=== PATIENT | female | born 1980 | race Caucasian/White ===

== ENCOUNTER 2021-05-16 08:35 | Outpatient (REF) | payer MEDICAID, SELFPAY ==
--- NOTE | ~2021-05-16 | US_ITS ---
EXAMINATION: US THYROID CLINICAL INFORMATION: Nontoxic single thyroid nodule COMPARISON: None TECHNIQUE: Linear transducer cabrera-scale and color Doppler examination with attention to the region of the thyroid. FINDINGS: SIZE: Measurements of the thyroid lobes and nodules are given in sagittal, anteroposterior and transverse dimensions respectively. Right Thyroid Lobe: 5.5 x 1.4 x 2.1 cm, volume 8.5 mL. Parenchyma: The gland echotexture is homogeneous. Thyroid vascularity is normal. Left Thyroid Lobe: 5.2 x 1.3 x 1.4 cm, volume 4.9 mL. Parenchyma: The gland echotexture is homogeneous. Thyroid vascularity is normal. Isthmus: 0.26 cm in maximum AP dimension. Estimated total number of nodules greater than or equal to 1 cm: 0. Personal Care Attendant nodules are described as follows: 1. Location: Right upper. Size: 0.45 x 0.27 x 0.46 cm, volume 0.03 mL. Nodule characteristics: Composition: Solid (2). Echogenicity: Hyperechoic (1). Shape: Not taller than wide (0). Margins: Smooth (0). Echogenic Foci: None (0). ACR TI-RADS total points: 3 ACR TI-RADS category: 3 2. Location: Isthmus. Size: 0.48 x 0.3 x 0.38 cm, volume 0.03 mL. Nodule characteristics: Composition: Mixed cystic and solid (1). Echogenicity: Hypoechoic (2). Shape: Not taller than wide (0). Margins: Smooth (0). Echogenic Foci: None (0). ACR TI-RADS total points: 3 ACR TI-RADS category: 3 3. Location: Isthmus. Size: 0.23 x 0.23 x 0.28 cm, volume 0.008 mL. Nodule characteristics: Composition: Cystic(0). Echogenicity: Shape: Margins: Echogenic Foci: ACR TI-RADS total points: 0 ACR TI-RADS category: 1 NODES: No lymphadenopathy is seen in the tissue surrounding the thyroid gland. US/US thyroid IMPRESSION: Normal-size thyroid gland. 3 small thyroid nodules. No nodule meets TI RADS criteria for fine-needle aspiration or follow-up. ACR TI-RADS RECOMMENDATION REFERENCE: Ultrasound-guided fine-needle aspiration, followup ultrasound, no further follow up. * TR1 (0 point) and TR 2 (2 points): No FNA or follow up * TR3 (3 points): FNA if more than or equal to 2.5 cm in maximum dimension, followup ultrasound in 1, 3 and 5 years if 1.5 to 2.4 cm in maximum dimension. * TR4 (4-6 points): FNA if more than or equal to 1.5 cm in maximum dimension, followup ultrasound in 1, 2, 3 and 5 years if 1 to 1.4 cm in maximum dimension. * TR5 (more than or equal to 7 points): FNA if more than or equal to 1 cm in maximum dimension, followup ultrasound every year for 5 years if 0.5 to 0.9 cm in maximum dimension. * TR3, TR4 or TR5 nodules that are below the size threshold for follow up receive no follow up.
== END 2021-05-16 08:36 | disposition home or self-care (01) ==
LOC: HO.US 08:35
PROVIDERS: PCP Internal Medicine; Visit Provider Internal Medicine
DX: E04.1 Nontoxic single thyroid nodule (principal)
CPT/HCPCS: 76536

== ENCOUNTER 2021-06-18 09:58 | Emergency (ER) | payer MEDICAID, SELFPAY ==
--- NOTE | ~2021-06-18 | XR_ITS ---
EXAMINATION: CHEST AND LEFT SHOULDER. CLINICAL INFORMATION: Chest pain and left shoulder pain COMPARISON: CT chest 11/29/2017 TECHNIQUE: Chest one view. Left shoulder 4 views. FINDINGS: CHEST: Both lungs are fairly well-expanded and clear. The heart size and pulmonary vascularity is normal. No gross bony abnormality seen. LEFT SHOULDER: There is no visible acute fracture, dislocation or subluxation seen. The glenohumeral joint space and the left AC joint space is normal. The soft tissues are normal. XR/XR shoulder LT min 2V IMPRESSION: Unremarkable left shoulder and unremarkable chest exam.
--- NOTE | ~2021-06-18 | XR_ITS ---
EXAMINATION: CHEST AND LEFT SHOULDER. CLINICAL INFORMATION: Chest pain and left shoulder pain COMPARISON: CT chest 11/29/2017 TECHNIQUE: Chest one view. Left shoulder 4 views. FINDINGS: CHEST: Both lungs are fairly well-expanded and clear. The heart size and pulmonary vascularity is normal. No gross bony abnormality seen. LEFT SHOULDER: There is no visible acute fracture, dislocation or subluxation seen. The glenohumeral joint space and the left AC joint space is normal. The soft tissues are normal. XR/XR chest 1V IMPRESSION: Unremarkable left shoulder and unremarkable chest exam.
[2021-06-18 09:59] VITALS: BP 107/74; PULSE 79; RESP 16; TEMP 36.3; O2SAT 97; BMI 23.5
--- NOTE | 2021-06-18 10:26 | ED_ITS ---
HPI - Extremity Problem General Chief complaint: Extremity Injury, Upper Stated complaint: left shoulder pain Source: patient Mode of arrival: ambulatory Limitations: no limitations History of Present Illness HPI Narrative: Patient presents to the ED for left shoulder pain, left-sided neck pain, sensation of shoulder and upper back tightness, radiating to chest. Patient states also pain on movement of upper torso. Patient states she woke up with this pain yesterday morning. Patient does not recall if she slept on it. Patient denies any recent trauma to left upper extremity, chest, back. 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 MD Complaint: extremity pain Related Data Previous Rx's Medication Instructions Recorded cyclobenzaprine 10 mg tablet 10 mg PO TID PRN 5 Days #15 tab 06/18/21 naproxen 500 mg tablet 500 mg PO BID PRN #20 tab 06/18/21 Allergies Allergy/AdvReac Type Severity Reaction Status Date / Time No Known Allergies Allergy Unverified 08/04/20 15:17 Review of Systems Review of Systems: Yes all other systems are reviewed and are negative and unobtainable due to endotracheal tube Constitutional: Constitutional: Reports as per HPI and Reports no additional constitutional complaints Eyes: Eyes: Reports as per HPI and Reports no additional eye complaints ENT: Reports system reviewed and no additional complaints, except as documented, Reports as per HPI and Reports neck pain (Left lateral neck pain) Cardiovascular: Cardiovascular: Reports as per HPI, Reports no additional cardiovascular complaints and Reports chest pain Respiratory: Respiratory: Reports as per HPI and Reports no additional respiratory complaints Gastrointestinal: Gastrointestinal: Reports as per HPI and Reports no additional gastrointestinal complaints Genitourinary: Genitourinary: Reports no additional female genitourinary complaints and Reports as per HPI Musculoskeletal: Musculoskeletal: Reports no additional musculoskeletal compla ints, Reports as per HPI, Reports back pain (Left upper back pain), Reports arthralgias and Reports neck pain (Left lateral neck pain) Comments: Left shoulder pain. Neurologic: Reports system reviewed and no additional complaints, except as documented and Reports as per HPI Psychiatric: Psychiatric: Reports no additional psychiatric complaints and Reports as per HPI PMFSH Past Medical History Surgical History (Updated 10/10/20 @ 15:43 by Malini Camargo [facility]) Hx of section Hx of removal of cyst Family History Family History (Updated 10/06/20 @ 14:56 by Rosalva Whitmore LPN) Father Unknown family medical history Mother No problems noted. Social History Social History (Updated 10/06/20 @ 14:55 by Rosalva Whitmore LPN) Advance Directives: No Advance Directives Information Provided: No Patient : No Physical Exam Vital Signs: Vital Signs: Last Vital Signs Temp 99.0 F 06/18/21 11:51 Pulse 65 06/18/21 11:51 Resp 18 06/18/21 11:51 BP 96/62 06/18/21 11:51 Pulse Ox 98 06/18/21 11:51 Body Mass Index 23.5 Const: General: cooperative, healthy appearing, comfortable, no acute distress, well developed, alert, awake and Physically active Orientation/consciousness: patient oriented x3 HENMT: Head: Yes normal to inspection, Yes No palpable skull fracture present, Yes normocephalic, Yes atraumatic and No abrasion Eyes: General: appearance normal, both eyes and all related structures Neck: Neck: Yes normal visual inspection, Yes full ROM, Yes no lymphaden opathy, Yes no meningeal signs, Yes trachea midline, Yes supple and Yes tender (Left lateral neck pain worse on movement) Chest: Chest palpation & inspection: normal inspection of the chest Chest/axillae images: 1. Positive for upper left for chest wall tenderness on palpation Resp: Effort & Inspection: normal respiratory effort and able to speak in complete sentences Auscultation: clear to auscultation bilaterally Cardio: Jugular venous distension: no JVD Heart sounds: S1 normal heart sound present and S2 normal heart sound present GI: Inspection: Yes normal to inspection and No abdominal wall ecchymosis Palpation (GI): Soft to palpation, not firm, nontender, no guarding and not rigid : General: No CVA tenderness and Yes no CVA tenderness Back/Spine/Pelvis: Back: no CVA tenderness, No CVA tenderness and No back tenderness Skin: General skin exam: no rashes or lesions noted and elasticity normal Neuro: General: patient oriented x3, gait normal, no meningeal signs and CN's II-XI intact bilaterally Cranial nerves: Yes CN's II-XII intact bilaterally Extrem: Shoulder/upper arm images: 1. Positive for tenderness on palpation. Pain on range of motion of left upper extremity. Negative for swelling of left upper extremity or redness. Molar/nerve/vessel exam is intact. Course Course Course Narrative: Due to patient stating chest pain with shoulder pain and history of smoking over 40 will do 1 cardiac anxiety and D-dimer. Patient given Flexeril. Reevaluation(s) Reevaluation #1: EKG negative for STEMI. Chest x-ray shoulder x-ray came back normal. D-dimer came back negative. Perc score 0. Troponin came back negative. Labs including kidney function came back normal. Patient is safe for d ischarge. Muscular pain. Muscle spasm Time: 12:25 MDM - Extremity (Nontraumatic) MDM Narrative Medical decision making narrative: Muscle spasm. Lab Data Result diagrams: 06/18/21 11:19 06/18/21 11:19 Labs: Lab Results 06/18/21 06/18/21 06/18/21 Range/Units 11:19 11:19 11:19 WBC 11.0 H (4.8-10.8) X10*3/uL RBC 4.57 (4.20-5.50) X10*6/uL Hgb 14.1 (12.0-16.0) g/dl Hct 43.1 (37-47) % MCV 94.3 (80-98) fL MCH 30.9 (27.0-33.0) pg MCHC 32.7 (31.0-35.0) g/dl RDW 12.9 (11.0-16.0) % Plt Count 298 (160-400) X10*3/uL MPV 9.8 (9.4-12.3) fL Immature Gran % (Auto) 0.2 (0.0-0.4) % Neut % (Auto) 72.8 (45-73) % Lymph % (Auto) 19.2 L (20-40) % Wilcox % (Auto) 5.0 (2-11) % Eos % (Auto) 2.5 (0-4) % Baso % (Auto) 0.3 (0-2) % Lymph # (Auto) 2.1 (1.2-4.9) X10*3/uL Wilcox # (Auto) 0.6 (0.1-1.2) X10*3/uL Eos # (Auto) 0.3 (0.0-0.4) X10*3/uL Baso # (Auto) 0.0 (0.0-0.2) X10*3/uL Abs Immat Gran (auto) 0.02 (0.00-0.03) X10*3/uL Absolute Neuts (auto) 8.0 (2.0-8.3) X10*3/uL Absolute Nucleated RBC 0.000 (0.0-0.012) X10*3/uL Nucleated RBC % (auto) 0.0 (0.0-0.2) /100WBC PT (9.9-13.0) SEC INR (0.9-1.1) APTT (24.1-38.0) SEC D-Dimer < 200 NG/ML Sodium 141 (135-145) mmol/L Potassium 4.3 (3.3-5.1) mmol/L Chloride 108 (96-108) mmol/L Carbon Dioxide 25 (22-29) mmol/L Anion Gap 12 (12-20) BUN 9 (9-16) mg/dL Creatinine 0.77 (0.5-1.4) mg/dL Estim Creat Clear Calc 82.1 Estimated GFR > 60 Random Glucose 88 (60-115) mg/dL Calcium 9.3 (8.4-10.2) mg/dL Total Bilirubin 0.4 (0.0-1.0) mg/dL AST 12 (5-31) U/L ALT 10 (0-31) U/L Alkaline Phosphatase 85 (39-117) U/L Troponin I High Sens (<3.5-17.0) ng/L Total Protein 7.5 (6.5-8.0) g/dL Albumin 4.3 (3.5-5.0) g/dL 06/18/21 06/18/21 Range/Units 11:19 11:19 WBC (4.8-10.8) X10*3/uL RBC (4.20-5.50) X10*6/uL Hgb (12.0-16.0) g/dl Hct (37-47) % MCV (80-98) fL MCH (27.0-33.0) pg MCHC (31.0-35.0) g/dl RDW (11.0-16.0) % Plt Count (160-400) X10*3/uL MPV (9.4-12.3) fL Immature Gran % (Auto) (0.0-0.4) % Neut % (Auto) (45-73) % Lymph % (Auto) (20-40) % Wilcox % (Auto) (2-11) % Eos % (Auto) (0-4) % Baso % (Auto) (0-2) % Lymph # (Auto) (1.2-4.9) X10*3/uL Wilcox # (Auto) (0.1-1.2) X10*3/uL Eos # (Auto) (0.0-0.4) X10*3/uL Baso # (Auto) (0.0-0.2) X10*3/uL Abs Immat Gran (auto) (0.00-0.03) X10*3/uL Absolute Neuts (auto) (2.0-8.3) X10*3/uL Absolute Nucleated RBC (0.0-0.012) X10*3/uL Nucleated RBC % (auto) (0.0-0.2) /100WBC PT 11.0 (9.9-13.0) SEC INR 1.0 (0.9-1.1) APTT 35.3 (24.1-38.0) SEC D-Dimer NG/ML Sodium (135-145) mmol/L Potassium (3.3-5.1) mmol/L Chloride (96-108) mmol/L Carbon Dioxide (22-29) mmol/L Anion Gap (12-20) BUN (9-16) mg/dL Creatinine (0.5-1.4) mg/dL Estim Creat Clear Calc Estimated GFR Random Glucose (60-115) mg/dL Calcium (8.4-10.2) mg/dL Total Bilirubin (0.0-1.0) mg/dL AST (5-31) U/L ALT (0-31) U/L Alkaline Phosphatase (39-117) U/L Troponin I High Sens < 3.5 (<3.5-17.0) ng/L Total Protein (6.5-8.0) g/dL Albumin (3.5-5.0) g/dL ECG Data Interpretation: Sinus bradycardia. Ventricular rate 59. Parent over 90. QRS 90. QTC 401. Negative STEMI Discharge Plan Discharge Clinical Impression: Muscle spasm of left shoulder Patient Disposition: Home, Self-Care Instructions: Shoulder Sprain (ED), Muscle Spasm (ED) Additional Instructions: You were diagnosed with muscle spasm versus shoulder sprain. EKG and troponin came back negative for heart attack. Your D-dimer came back negative for risk of blood clot. A chest x-ray and shoulder x-ray came back normal. Rest of your blood work came back normal. Please follow-up with your PCP. Return to the ED for any worsening chest pain, swelling of left upper extremity, shortness of breath, redness, red streaks, neck stiffness, fever, chills, or any other concerning symptoms. Prescriptions: New naproxen 500 mg tablet 500 mg PO BID PRN (Reason: pain) Qty: 20 RF: 0 cyclobenzaprine 10 mg tablet 10 mg PO TID PRN (Reason: muscle spasm) 5 Days Qty: 15 RF: 0 Stand Alone Forms: Work/School Release Interventions: ED Discharge Assessment Last Done: 06/18/21 12:38 Discharge Date/Time: 06/18/21 12:38 Print Language: Uzbek
--- NOTE | 2021-06-18 10:33 | ECG_ITS ---
Test Reason : CHEST PAIN Blood Pressure : / mmHG Vent. Rate : 060 BPM Atrial Rate : 058 BPM P-R Int : 000 ms QRS Dur : 088 ms QT Int : 418 ms P-R-T Axes : 000 071 053 degrees QTc Int : 418 ms Normal sinus rhythm Normal ECG No previous ECGs available Referred By: Jaydon Craig Electronically Signed By:LIZ JUAREZ
--- NOTE | 2021-06-18 10:51 | ECG_ITS ---
Test Reason : CHEST PAIN Blood Pressure : / mmHG Vent. Rate : 059 BPM Atrial Rate : 059 BPM P-R Int : 090 ms QRS Dur : 090 ms QT Int : 406 ms P-R-T Axes : 041 072 057 degrees QTc Int : 401 ms Sinus bradycardia with sinus arrhythmia with short NH Otherwise normal ECG When compared with ECG of 18-JUN-2021 10:48, No significant changes seen Referred By: Jaydon Craig Electronically Signed By:Jim Wade
[2021-06-18] MEDS: Cyclobenzaprine HCl 10 MG TABLET PO (10:52)
[2021-06-18 11:24] LABS: MANUAL DIFF FLAG NO
[2021-06-18 11:27] LABS: Basophils Percent Auto 0.3 % (0-2); Eosinophils Absolute Auto 0.3 X10*3/uL (0.0-0.4); Eosinophils Percent Auto 2.5 % (0-4); Hematocrit 43.1 % (37-47); Hemoglobin 14.1 g/dl (12.0-16.0); Imm Gran Abs Auto 0.02 X10*3/uL (0.00-0.03); Imm Gran Pct Auto 0.2 % (0.0-0.4); Lymphocytes Absolute Auto 2.1 X10*3/uL (1.2-4.9); Lymphocytes Percent Auto 19.2 % (20-40); Mean Corpuscular HGB Conc 32.7 g/dl (31.0-35.0); Mean Corpuscular Hemoglobin 30.9 pg (27.0-33.0); Mean Corpuscular Volume 94.3 fL (80-98); Mean Platelet Volume 9.8 fL (9.4-12.3); Monocytes Absolute Auto 0.6 X10*3/uL (0.1-1.2); Neutrophils Percent Auto 72.8 % (45-73); Platelet Count 298 X10*3/uL (160-400); Red Blood Count 4.57 X10*6/uL (4.20-5.50); Red Cell Distribution Width 12.9 % (11.0-16.0)
[2021-06-18 11:35] LABS: Partial Thromboplastin Time 35.3 SEC (24.1-38.0)
[2021-06-18 11:49] LABS: D Dimer < 200 NG/ML
[2021-06-18 11:50] LABS: Troponin-I High Sensitivity < 3.5 ng/L (<3.5-17.0)
[2021-06-18 11:51] VITALS: BP 96/62; PULSE 65; RESP 18; TEMP 37.2; O2SAT 98
[2021-06-18 11:56] LABS: Alanine Aminotransferase 10 U/L (0-31); Albumin Level 4.3 g/dL (3.5-5.0); Alkaline Phosphatase 85 U/L (39-117); Anion Gap 12 (12-20); Aspartate Amino Transferase 12 U/L (5-31); Bilirubin Total 0.4 mg/dL (0.0-1.0); Blood Urea Nitrogen 9 mg/dL (9-16); Calcium 9.3 mg/dL (8.4-10.2); Carbon Dioxide 25 mmol/L (22-29); Chloride 108 mmol/L (96-108); Creatinine Clr Calc Pharmacy 82.1; Estimated Glomerular Filt Rate > 60; Glucose Random 88 mg/dL (60-115); Potassium 4.3 mmol/L (3.3-5.1); Sodium 141 mmol/L (135-145); Total Protein 7.5 g/dL (6.5-8.0)
== END 2021-06-18 12:38 | disposition home or self-care (01) ==
PROVIDERS: Physician Assistant; Emergency Provider Student in an Organized Health Care Education/Training Program; PCP Internal Medicine
DX: M25.512 Pain in left shoulder (principal); M54.2 Cervicalgia; M62.838 Other muscle spasm; Z79.899 Other long term (current) drug therapy
CPT/HCPCS: 36415; 71045; 73030; 80053; 84484; 85025; 85379; 85610; 85730; 93005; 99283; 99284

== ENCOUNTER → 2021-07-27 10:28 | Outpatient (BNVA) | payer MEDICAID, SELFPAY | PROVIDERS: PCP Internal Medicine; Visit Provider Internal Medicine | DX: E55.9 Vitamin D deficiency, unspecified (principal); E04.2 Nontoxic multinodular goiter; E05.00 Thyrotoxicosis with diffuse goiter without thyrotoxic crisis or storm | CPT/HCPCS: 99212 ==

== ENCOUNTER 2021-07-27 11:10 | Outpatient (REF) | payer MEDICAID, SELFPAY ==
[2021-07-27 14:31] LABS: Free T4 (Free Thyroxine) 1.13 ng/dL (0.71-1.85); Thyroid Stimulating Hormone 0.47 uIU/mL (0.32-4.0); Vitamin D 25-OH Total 18.7 ng/mL (>30)
[2021-07-29 03:02] LABS: Triiodothyronine T3 Total 94 ng/dL (76-181)
== END 2021-07-27 11:11 | disposition home or self-care (01) ==
LOC: HO.10HDL 11:10
PROVIDERS: Visit Provider Internal Medicine
DX: E04.2 Nontoxic multinodular goiter (principal); E05.00 Thyrotoxicosis with diffuse goiter without thyrotoxic crisis or storm; E55.9 Vitamin D deficiency, unspecified
CPT/HCPCS: 36415; 82306; 84439; 84443; 84480

== ENCOUNTER 2022-01-29 08:43 | Emergency (ER) | payer MEDICAID, SELFPAY ==
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
[2022-01-29 09:01] VITALS: BP 138/76; PULSE 72; RESP 18; TEMP 36.1; O2SAT 99; BMI 25.7
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
== END 2022-01-29 11:27 | disposition home or self-care (01) ==
PROVIDERS: Emergency Provider Emergency Medicine
DX: S13.4XXA Sprain of ligaments of cervical spine, initial encounter (principal); V43.52XA Car driver injured in collision with other type car in traffic accident, initial encounter; R51.9 Headache, unspecified; M54.50 Low back pain, unspecified; R07.81 Pleurodynia; Y93.89 Activity, other specified; Y92.410 Unspecified street and highway as the place of occurrence of the external cause; Y99.9 Unspecified external cause status
CPT/HCPCS: 70450; 71111; 72100; 72125; 99283; 99284

== ENCOUNTER → 2023-06-06 10:30 | Outpatient (BNV) | payer OTHER, SELFPAY | PROVIDERS: Visit Provider Psychiatry & Neurology Psychiatry | DX: F31.9 Bipolar disorder, unspecified (principal) | CPT/HCPCS: 99213 ==

== ENCOUNTER 2023-06-10 10:30 | Outpatient (RCR) | payer OTHER, SELFPAY ==
[2023-05-24 11:44] VITALS: BP 120/77; PULSE 61; TEMP 37.2
--- NOTE | 2023-05-28 09:20 | P.HPPSP_ITS ---
HPI Date of Service: 05/28/23 Chief Complaint: bipolar,ADHD,PTSD,NATALIO Sources of Information: patient interviewed, chart reviewed and crisis/core team assessment reviewed HPI Narrative: Patient is a 43-year-old female who reports worsening depression irritability wo rsening of flashbacks and mood instability. She lives with 2 children 16 26-year-old that her boyfriend does not like how irritable she can be. She was referred by [facility] her therapist. She reports worsening depression hopelessness helplessness feeling not good about herself and worsening PTSD symptoms PMFSH Medical History (Updated 06/10/23 @ 22:20 by Se Ceron MD) Cyst of left ovary Graves disease Multinodular thyroid Polyp of gallbladder Polyp, corpus uteri Vitamin D deficiency Surgical History Hx of section Hx of removal of cyst Meds/Allergies Meds Home Medications Medication Instructions Recorded Confirmed Type albuterol sulfate 90 mcg/actuation 2 puff inhalation Q4-6H PRN dyspnea 05/24/23 05/24/23 History aerosol inhaler (Ventolin HFA) bupropion HCl 300 mg 24 hr tablet, 300 mg PO QAM 05/24/23 05/24/23 History extended release hydroxyzine HCl 25 mg tablet 25 mg PO Q12H PRN Anxiety 05/24/23 05/24/23 History methimazole 5 mg tablet 5 mg PO QAM 05/24/23 05/24/23 History mirtazapine 30 mg tablet 15 mg PO BEDTIME 05/24/23 05/24/23 History Allergies Allergies Allergy/AdvReac Type Severity Reaction Status Date / Time No Known Allergies Allergy Verified 07/27/21 10:43 Mental Status Exam Mental Status Exam Narrative: pt cooperative mood anxious ruminating describes mood lability denies active si racing thoughts neg gauthier agreeable to tx Assessment & Plan Assessment & Plan (1) Bipolar 2 disorder, major depressive episode: Status: Acute Code(s): F31.81 - Bipolar II disorder (2) Post traumatic stress disorder (PTSD): Status: Acute Code(s): F43.10 - Post-traumatic stress disorder, unspecified Plan Start Lamictal for mood instability PTSD question of bipolar disorder clonidine for ring anxiety reactivity mood instability. Risks benefits alternatives reviewed literature given Certification I certify that partial hospital treatment is medically necessary due to the symptoms and problems resulting from the patient's mental illness and the failure to treat the patient at the partial hospital level of care would likely result in the patient requiring inpatient psychiatric care which could not be prevented at a less intensive level of care. Time Spent With Patient Time: Total time managing care of this patient today ____ minutes.
[2023-05-28 09:56] VITALS: BP 107/73; PULSE 56
[2023-05-29 11:41] VITALS: BP 110/71; PULSE 56
[2023-05-30 08:52] VITALS: BP 100/62; PULSE 70
--- NOTE | 2023-05-30 16:45 | HO.PHP ---
Clients case was reviewed and opened today in treatment team.
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
[2023-06-05 11:33] LABS: Amphetamine Screen Urine Not Detected (Not Detect); Barbiturates, Urine Not Detected (Not Detect); Benzodiazepines Screen Urine Not Detected (Not Detect); Cannabinoid Screen Urine POSITIVE (Not Detect); Cocaine Screen Urine Not Detected (Not Detect); Fentanyl, urine Not Detected (Not Detect); Opiate Screen Urine Not Detected (Not Detect); Phencyclidine Screen Urine Not Detected (Not Detect)
--- NOTE | 2023-06-07 09:45 | HO.PHPPROGNO ---
Subjective Subjective Date of Service: 06/07/23 Reason For Visit: bipolar,ADHD,PTSD,NATALIO Healthcare Proxy: No Guardianship: No Medical Problems Affecting Mental Status: No Interim History: This is a follow-up visit with family during her partial hospital engagement. She was seen on 05/28 and started on Lamictal 25 mg which she is aware of needing to go up by 25 mg increments every 2 weeks and also clonidine 0.1 mg, half to 1 tablet daily p.r.n.. She states that she is tolerating both medications well. She denies any dizziness. She was informed of side effects of both medications including Dominique-Paul syndrome. She is sleeping well. She is finding the program here quite helpful. She does have an appointment next week with her prescriber at [facility]. No changes were made today Medication Compliance: Yes Side effects from medications: No Attending Groups: Yes Review of Systems Review of Systems Yes all other systems are reviewed and are negative Mental Status Exam Mental Status Exam Narrative: In today's visit she is alert, oriented and pleasant. Normal speech. Good eye contact. Affect is appropriate and varied. No suicidal homicidal ideations upon inquiry. No signs of psychosis. No SI. Cognitively is intact. Judgment is intact Diagnostics Labs Labs: Laboratory Results - last 48 hr 06/05/23 08:59 Urine Opiates Screen Not Detected Urine Fentanyl Screen Not Detected Ur Barbiturates Screen Not Detected Ur Phencyclidine Scrn Not Detected Ur Amphetamines Screen Not Detected U Benzodiazepines Scrn Not Detected Urine Cocaine Screen Not Detected U Marijuana (THC) Screen POSITIVE H Assessment & Plan Assessment & Plan (1) Bipolar 1 disorder, depressed: Status: Acute Code(s): F31.9 - Bipolar disorder, unspecified Plan Continue current medications. Continue partial hospital program to its completion Certification I certify that partial hospital treatment is medically necessary due to the symptoms and problems resulting from the patient's mental illness and the failure to treat the patient at the partial hospital level of care would likely result in the patient requiring inpatient psychiatric care which could not be prevented at a less intensive level of care. Total time managing care of this patient today ____ minutes. Discharge Plan Discharge Attending provider: Rakesh Hickman Medications: New clonidine HCl 0.1 mg tablet 0.1 mg PO DAILY PRN (Reason: anxiety) Qty: 10 1RF lamotrigine [Lamictal] 25 mg tablet 25 mg PO DAILY 14 Days Qty: 14 0RF No Action mirtazapine 30 mg tablet 15 mg PO BEDTIME methimazole 5 mg tablet 5 mg PO QAM hydroxyzine HCl 25 mg tablet 25 mg PO Q12H PRN (Reason: Anxiety) bupropion HCl 300 mg tablet extended release 24 hr 300 mg PO QAM albuterol sulfate [Ventolin HFA] 90 mcg/actuation HFA aerosol inhaler 2 puff INHALATION Q4-6H PRN (Reason: dyspnea) Stand Alone Forms: Patient Portal Discharge page
--- NOTE | 2023-06-10 13:48 | PC.NURSE ---
Patient discharged 06/10/23. Routine discharge. Discharge plan including discharge meds reviewed with patient. Patient in agreement with discharge plan. Patient discharged to outpatient providers. Patient denies SI, no plan, no intent. Discharge plan including medication list faxed to out patient providers.
--- NOTE | 2023-06-10 15:48 | HO.PHP ---
PHP staff went to get Martina to complete discharge paperwork during the second group. Martina was not in the group at the time, when Clinician was walking back to her office, Martina was in the hallway and asked the clinician if she could leave. PHP staff explored with Martina why she would like to leave, Martina stated she doesn't want to be here. Martina appeared to be angry, irritable, and tearful. PHP staff stated that it appears as though something had occurred. Martina disclosed that she is tired of feeling the way she does and just wants to get better. Martina made a comment that was unclear as to what she was implying, therefore, the clinician assessed for safety. Martina denies any current SI, plan or intent. Martina mentioned she just wants to go home and go to bed. PHP staff attempted to encourage her to try to stay the remainder of the day if able but that appeared to upset Martina more. PHP staff voiced that she will review the Discharge paperwork with her and then she can go home. Martina was receptive and appeared to regulate.
== END 2023-06-10 23:59 | disposition home or self-care (01) ==
LOC: HO.PHPA 10:30
PROVIDERS: Psychiatry & Neurology Psychiatry; Visit Provider Psychiatry & Neurology Psychiatry
DX: F31.81 Bipolar II disorder (principal); F43.10 Post-traumatic stress disorder, unspecified; Z79.899 Other long term (current) drug therapy
CPT/HCPCS: 80307; 90791; 90853

== ENCOUNTER → 2023-06-10 10:30 | Outpatient (BNV) | payer OTHER, SELFPAY | PROVIDERS: Visit Provider Psychiatry & Neurology Psychiatry | DX: F31.81 Bipolar II disorder (principal); F43.11 Post-traumatic stress disorder, acute | CPT/HCPCS: 99212; 99214 ==

== ENCOUNTER 2024-07-09 17:41 | Outpatient (REF) | payer OTHER, SELFPAY | END 2024-07-09 17:42 | disposition home or self-care (01) | LOC: HO.HHCLNP 17:41 | PROVIDERS: Visit Provider Family Medicine | DX: B34.9 Viral infection, unspecified (principal) | CPT/HCPCS: 87070 ==

== ENCOUNTER 2024-08-24 13:18 | Outpatient (REF) | payer OTHER, SELFPAY ==
[2024-08-27 00:59] LABS: TS Negative Control Passed; TS Panel A 0; TS Panel B 0; TS Positive Control Passed; TSpotTB Negative (Negative)
== END 2024-08-24 13:19 | disposition home or self-care (01) ==
LOC: HO.HHCL 13:18
PROVIDERS: Visit Provider Internal Medicine Geriatric Medicine
DX: Z11.1 Encounter for screening for respiratory tuberculosis (principal)
CPT/HCPCS: 36415; 86481

== ENCOUNTER 2024-10-22 10:46 | Outpatient (REF) | payer MEDICAID, SELFPAY ==
[2024-10-22 11:10] LABS: MANUAL DIFF FLAG NO
[2024-10-22 12:10] LABS: Basophils Percent Auto 0.5 % (0-2); Eosinophils Absolute Auto 0.5 X10*3/uL (0.0-0.4); Eosinophils Percent Auto 5.4 % (0-4); Hematocrit 38.9 % (37.0-47.0); Hemoglobin 12.7 g/dl (12.0-16.0); Imm Gran Abs Auto 0.02 X10*3/uL (0.00-0.03); Imm Gran Pct Auto 0.2 % (0.0-0.4); Lymphocytes Absolute Auto 2.2 X10*3/uL (1.2-4.9); Mean Corpuscular HGB Conc 32.6 g/dl (31.0-35.0); Mean Corpuscular Hemoglobin 30.5 pg (27.0-33.0); Mean Corpuscular Volume 93.5 fL (80.0-98.0); Mean Platelet Volume 11.1 fL (9.4-12.3); Monocytes Absolute Auto 0.6 X10*3/uL (0.1-1.2); Monocytes Percent Auto 6.6 % (2-11); Neutrophils Absolute Auto 5.3 x10*3/uL (2.0-8.3); Neutrophils Percent Auto 61.3 % (45-73); Platelet Count 293 X10*3/uL (160-400); Red Blood Count 4.16 X10*6/uL (4.20-5.50); Red Cell Distribution Width 12.8 % (11.0-16.0); White Blood Count 8.6 X10*3/uL (4.8-10.8)
[2024-10-22 12:32] LABS: Amphetamine Screen Urine Not Detected (Not Detect); Barbiturates, Urine Not Detected (Not Detect); Benzodiazepines Screen Urine Not Detected (Not Detect); Buprenorphine Scr Not Detected (Not Detect); Cannabinoid Screen Urine POSITIVE (Not Detect); Cocaine Screen Urine Not Detected (Not Detect); Fentanyl, urine Not Detected (Not Detect); Methadone Screen, Urine Not Detected (Not Detect); Opiate Screen Urine Not Detected (Not Detect); Oxycodone Screen Urine Not Detected (Not Detect); Phencyclidine Screen Urine Not Detected (Not Detect)
[2024-10-22 12:52] LABS: Alanine Aminotransferase 9 U/L (0-31); Alkaline Phosphatase 69 U/L (39-117); Anion Gap 9 (12-20); Aspartate Amino Transferase 16 U/L (5-31); Bilirubin Total 0.4 mg/dL (0.0-1.0); Blood Urea Nitrogen 10 mg/dL (9-16); Calcium 8.8 mg/dL (8.4-10.2); Carbon Dioxide 24 mmol/L (22-29); Chloride 112 mmol/L (96-108); Cholesterol 150 mg/dL (<200); Estimated Glomerular Filt Rate > 60; Glucose Fasting 91 mg/dL (60-99); HDL Cholesterol 35 mg/dL (>40); LDL Cholesterol Calculated 103 mg/dL (<100); Potassium 3.8 mmol/L (3.3-5.1); Sodium 141 mmol/L (135-145); Total Protein 7.4 g/dL (6.5-8.0); Triglycerides 61 mg/dL (<150)
== END 2024-10-22 10:47 | disposition home or self-care (01) ==
LOC: HO.LAB 10:46
PROVIDERS: Visit Provider Nurse Practitioner Psychiatric/Mental Health
DX: Z79.899 Other long term (current) drug therapy (principal)
CPT/HCPCS: 80053; 80061; 80307; 85025

== ENCOUNTER 2025-02-24 08:25 | Outpatient (REF) | payer MEDICAID, SELFPAY ==
--- NOTE | 2025-02-24 08:30 | ECG_ITS ---
Test Reason : f39 r/o qtc Blood Pressure : */* mmHG Vent. Rate : 58 BPM Atrial Rate : 58 BPM P-R Int : 110 ms QRS Dur : 90 ms QT Int : 414 ms P-R-T Axes : 18 60 50 degrees QTcB Int : 406 ms Sinus bradycardia with short AL Otherwise normal ECG When compared with ECG of 18-Jun-2021 10:51, No significant change was found Referred By: Hannah Cao Electronically Signed By: Jim Wade
--- OUTSIDE RECORDS SUMMARY | 2025-02-24 08:37 | XMS_ITS | Clinical Summary ---
Author Organization [employer] Address [address] [place] [address] Care Team Providers Care Content Editor Name Role Phone Juliette Madden MD Primary Care Provider [phone] Allergies No known active allergies Medications omeprazole (PriLOSEC) [address] capsule Take 1 capsule by mouth at bed time. 10/18/20 Active montelukast (Singulair) 10 MG tablet Take 1 tablet (10 mg) by mouth in the morning. 90 tablet 2 05/01/20 Active calamine-zinc oxide lotionIndicati ons:Pruritic rash Apply topically if needed in the morning, at noon, in the evening, and at bedtime (Skin irritation). 120 mL 05/28/20 Active Additional Information Patient not taking.Reported on 07/09/2024 hydrOXYzine HCl (Atarax) 25 MG tabletIndicati ons:Mixed anxiety and depressive disorder TAKE 1 TABLET BY MOUTH EVERY TWELVE HOURS NEEDED 60 tablet 07/19/20 Active Additional Information Patient not taking.Reported on 07/09/2024 triamcinolone (Kenalog) 0.1 % creamIndicatio ns:Pruritic rash APPLY TOPICALLY TO AFFECTED AREA(S) ONE OR TWO TIMES DAILY NEEDED FOR ITCHING FOR 1 TO 2 WEEKS 30 g 2 08/19/20 Active Additional Information Patient not taking.Reported on 07/09/2024 methIMAzole (Tapazole) 5 MG tabletIndicati ons:Graves' disease TAKE 1 TABLET BY MOUTH DAILY IN THE MORNING 90 tablet 09/27/20 Active Additional Information Patient not taking.Reported on 07/09/2024 buPROPion XL (Wellbutrin XL) 300 MG 24 hr tablet Take 300 mg by mouth in the morning. 01/15/20 Active mirtazapine (Remeron) 15 MG tablet Take 15 mg by mouth at bedtime. 01/15/20 Active lamoTRIgine (LaMICtal) 25 MG tablet TAKE 1 TABLET BY MOUTH EVERY DAY FOR FOURTEEN DAYS THEN INCREASE TO 2 TABLETS DAILY FOR MOOD 01/15/20 Active cloNIDine (Catapres) 0.1 MG tablet Take 0.1 mg by mouth if needed at bedtime. 01/15/20 Active albuterol (Ventolin HFA) 108 (90 Base) MCG/ACT inhaler INHALE 2 PUFFS BY MOUTH EVERY 4 TO 6 HOURS NEEDED FOR DIFFICULTY BREATHING DO NOT EXCEED 8 PUFFS 18 g 3 05/08/20 24 Active Additional Information Patient not taking.Reported on 07/09/2024 cetirizine (ZyrTEC) 10 MG tablet Take 1 tablet (10 mg) by mouth Once per day. 30 tablet 11 07/09/20 24 025 Active Additional Information Patient not taking.Reported on 07/09/2024 fluticasone (Flonase) 50 MCG/ACT nasal spray Administer 2 sprays into each nostril Once per day. Shake gently. Before first use, prime pump. After use, clean tip and replace cap. 16 g 3 07/09/20 24 025 Active Additional Information Patient not taking.Reported on 07/09/2024 acetaminophen (Tylenol 8 Hour) 650 MG ER tablet TAKE 1 TABLET BY MOUTH EVERY 8 HOURS NEEDED FOR MILD PAIN DO NOT BREAK, CRUSH, DISSOLVE OR CHEW 40 tablet 1 08/03/20 24 Active baclofen (Lioresal) 10 MG tabletIndicati ons:Chronic right shoulder pain Take one tablet TID PRN 30 tablet 12/03/19 25 Active ibuprofen 600 MG tabletIndicati ons:Chronic right shoulder pain TAKE 1 TABLET BY MOUTH EVERY 6 HOURS 120 tablet 1 02/02/20 25 Active ibuprofen 600 MG tabletIndicati ons:Chronic right shoulder pain Take 1 tablet (600 mg) by mouth every 6 (six) hours. 120 tablet 1 12/03/19 25 025 Discontinued Active Problems Problem Noted Date Diagnosed Date Seasonal allergies 10/23/2022 Adenomyomatosis of gallbladder 10/23/2022 Cyst of left ovary 03/19/2018 Polyp of corpus uteri 03/19/2018 Polyp of gallbladder 12/04/2017 Thyroid nodule 08/17/2016 Graves' disease 08/10/2016 Mood disorder 08/10/2016 Resolved Problems Problem Noted Date Diagnosed Date Resolved Date Helicobacter pylori gastritis 10/23/2022 10/23/2022 Encounters Date Type Department Care Team Description 02/17/2025 Patient Outreach [facility] [address] [place] [id number] Juliette Madden MD Pre-visit Planning ((Unable to reach for PVP screening and or LVM)) 01/31/2025 Refill [facility] [address] [place] [phone] Ginna Munoz NP Chronic right shoulder pain 01/29/2025 Population Health Risk Score Community [facility] ([facility]) Department [address] [place] [address] [phone] Provider, Population Health Generic 12/09/2024 Telephone [facility] [address] [place] [phone] Hermilo Batista MD Results 12/03/2024 1:40 PM EST Office Visit [facility] [address] [address] Ginna Munoz NP Chronic right shoulder pain (Primary Dx); Musculoskeletal pain; Thyroid nodule; Lymphadenopathy from Last 3 Months Immunizations Name Administration Dates Next Due Hep B, adult 08/10/2020,08/30/2017,07/31/2017 Influenza injectable quadriv alent preservative free 09/28/2022 Pfizer Covid-19 Vaccine 12+ 08/02/2021, Pneumococcal Polysaccharide PPSV23 08/10/2016 Tdap 08/10/2020 Family History Medical History Relation Name Comments Diabetes type II Father's Brother Diabetes type II Father's Sister Relation Name Status Comments Father's Brother Father's Sister Social History Tobacco Use Types Packs/Day Years Used Date Smoking Tobacco: Some Days Cigarettes Passive Smoke Exposure: Never Smokeless Tobacco: Never Tobacco Cessation:Ready to Q uit: Not Asked; Counseling Given: Not Answered Alcohol Use Standard Drinks/Week Comments Not Currently 0 (1 standard drink = 0.6 oz pur e alcohol) Depression Answer Date Recorded Patient Health Questionnaire-9 Score 2 01/25/2023 Housing Stability Answer Date Recorded What is your housing situation today? I have chema helms 09/19/[address] you li ve. Do you have problems with any of the following? None of the above 09/19/2023 Food Insecurity Answer Date Recorded Within the past 12 months, y ou worried that your food would run out before you got money to buy more: Sometimes True 2022 Within the past 12 months,th e food you bought just didn't last and you didn't have enough money to get more: Never True 09/19/2023 Transportation Answer Date Recorded In the past 12 months, has l ack of transportation kept you from medical appts, meetings, work or from getting things needed for daily living? No 09/19/2023 Utilities Answer Date Recorded In the past 12 months, has t he electric, gas, oil or water company threatened to shut off services in your home? No 09/19/2023 Depression Answer Date Recorded Patient Health Questionnaire-2 Score 0 01/25/2023 Comments Unknown Sex and Gender Information Value Date Recorded Sex Assigned at Female 09/17/2022 10:15 AM EDT Legal Sex Female 10:15 AM EDT Gender Identity Female 09/17/2022 10:15 AM EDT Sexual Orientation Straight 09/17/2022 10 :15 AM EDT Last Filed Vital Signs Vital Sign Reading Time Taken Comments Blood Pressure 118/77 12/03/2024 1:11 PM EST Pulse 65 12/03/2024 1:11 PM EST Temperature 36.7 ??C (98.1 ??F) 12/03/2024 1:11 PM ES T Respiratory Rate 16 12/03/2024 1:11 PM EST Oxygen Saturation 97% 12/03/2024 1:11 PM EST Inhaled Oxygen Concentration - - Weight 67.1 kg (148 lb) 12/03/2024 1:11 PM EST Height 162.6 cm (5' 4 ) 07/09/2024 9:11 AM EDT Body Mass Index 25.4 07/09/2024 9:11 AM EDT Plan of Treatment Health Maintenance Due Date Last Done Comments CT Colonography 1979 Colonoscopy 1979 Dental Prophylaxis 1979 FIT DNA/Cologuard 1979 FIT 1979 Sigmoidoscopy 1979 Alcohol/Substance Use Screening 1991 Family Planning (PISQ) 1994 Dental Oral Exam 06/04/2013 12/04/2012 Dental X-Ray: Full Mouth 12/05/2015 12/04/2012 Pneumococcal Vaccine: Pediatrics (0 to 5 Years) and At-Risk Patients (6 to 49) Years) (2 of 2 - PCV) 08/10/2017 08/10/2016 Mammogram 2019 Colorectal Cancer Screening 12/09/2020 FOBT 12/09/2020 12/09/2019 SDOH Screening 12/28/2023 12/28/2022 Depression Screening 01/26/2024 01/25/2023, 01/25/2023 Dental X-Ray: Bitewings 06/28/2024 06/27/20, 12/04/2012 COVID-19 Vaccine (3 - 2023-2 5 season) 2024 08/02/2021, 07/12/2021 Influenza Vaccine (#1) 2024 , 10/02/2007 Tobacco Screening 03/03/2025 03/03/2024 Cervical Cancer Screening 03/23/2026 HPV/Cotest 03/23/2026 03/23/2021 Pap Smear 03/23/2026 03/23/2021 Lipid Panel 10/22/2027 10/22/2022 Zoster Vaccines (1 of 2) 2029 DTaP/Tdap/Td Vaccines (2 - T d or Tdap) 08/10/2030 08/10/2020 RSV Patients and Patients Aged 60 years or older (1 - 1-dose 75+ series) 2054 Hepatitis B Vaccines Completed 08/10/2020, 08/30/2017, 07/31/2017 HIV Screening Completed 10/22/2022 Hepatitis C Screening Completed 10/22/2022 HIB Vaccines Aged Out No longer eligi ble based on patient's age to complete this topic HPV Vaccines Aged Out No longer eligi ble based on patient's age to complete this topic Hepatitis A Vaccines Aged Out No long er eligible based on patient's age to complete this topic IPV Vaccines Aged Out No longer eligi ble based on patient's age to complete this topic Meningococcal Vaccine Aged Out No samantha belinda eligible based on patient's age to complete this topic RSV under 20 months Aged Out No longe r eligible based on patient's age to complete this topic Rotavirus Vaccines Aged Out No longer eligible based on patient's age to complete this topic Procedures Procedure Name Priority Date/Time Associated Diagnosis Comments T3, TOTAL Routine 12/03/2024 2:30 PM EST Thyroid nodule T4, FREE Routine 12/03/2024 2:30 PM EST Thyroid nodule TSH Routine 12/03/2024 2:30 PM EST Thyroid nodule CBC WITH AUTO DIFFERENTIAL Routine 12/03/2024 2:30 PM EST Lymphadenopathy BITEWING - SINGLE RADIOGRAPHIC IMAGE Routine 06/27/2023 11:30 AM EDT Dental caries Dental abscess HEPATITIS C AB W/REFL TO HCV RNA, QN, PCR Routine 10/22/2022 10:27 AM EST HIV 1/2 ANTIGEN/ANTIBODY, FOURTH GENERATION W/RFL Routine 10/22/2022 10:27 AM EST LIPID PANEL, STANDARD Routine 10/22/2022 10:27 AM EST HM PAP/HPV Routine 03/23/2021 OCCULT BLOOD, FECAL, IMMUNOASSAY Routine 12/09/2019 12:00 AM EST INTRAORAL - COMPLETE SERIES OF RADIOGRAPHIC IMAGES Routine 12/04/2012 12:00 AM EST COMPREHENSIVE ORAL EVALUATION - NEW OR ESTABLISHED PATIENT Routine 12/04/2012 12:00 AM EST from Last 3 Months or Most Recently Relevant to Health Maintenance Results * (ABNORMAL) CBC auto differential (12/03/2024 2:30 PM EST) White Blood Count 9.8 4.8 - 10.8 X10*3/uL [facility] Red Blood Count 4.49 4.20 - 5.50 X10*6/uL [facility] Hemoglobin 13.7 12.0 - 16.0 g/dl [facility] Hematocrit 41.9 37.0 - 47.0 % [facility] Mean Corpuscular Volume 93.3 80.0 - 98.0 fL [facility] Mean Corpuscular Hemoglobin 30.5 27.0 - 33.0 pg [facility] Mean Corpuscular HGB Conc 32.7 31.0 - 35.0 g/dl [facility] Red Cell Distribution Width 12.5 11.0 - 16.0 % [facility] Platelet Count 296 160 - 400 X10*3/uL [facility] Mean Platelet Volume 11.2 9.4 - 12.3 fL [facility] Neutrophils Percent Auto 68.6 45 - 73 % [facility] Imm Gran Pct Auto 0.2 0.0 - 0.4 % [facility] Lymphocytes Percent Auto 21.3 20 - 40 % [facility] Monocytes Percent Auto 5.2 2 - 11 % [facility] Eosinophils Percent Auto 4.1(H) 0 - 4 % [facility] Basophils Percent Auto 0.6 0 - 2 % [facility] NRBC Pct Auto 0.0 0.0 - 0.2 /100WBC [facility] Neutrophils Absolute Auto 6.7 2.0 - 8.3 x10*3/uL [facility] Imm Gran Abs Auto 0.02 0.00 - 0.03 X10*3/uL [facility] Lymphocytes Absolute Auto 2.1 1.2 - 4.9 X10*3/uL [facility] Monocytes Absolute Auto 0.5 0.1 - 1.2 X10*3/uL [facility] Eosinophils Absolute Auto 0.4 0.0 - 0.4 X10*3/uL [facility] Basophils Absolute Auto 0.1 0.0 - 0.2 X10*3/uL [facility] NRBC Abs Auto 0.000 0.0 - 0.012 X10*3/uL [facility] Blood Venous blood specimen / Unknown 12/03/2024 2:30 PM EST 12/03/2024 3:57 PM EST Ginna Cole SECURITY SME LAB BLOOD ORDERABLES Final Resu lt Performing Organization Address [facility] Co de Phone Number [facility] [address] [place] [phone] * T3, Total (12/03/2024 2:30 PM EST) T3, Total 91 76 - 181 ng/dL [facility] Comment:THIS TEST WAS PERFOR MED AT:[address] [place] [phone] PETERSEN MD Blood Venous blood specimen / Unknown 12/03/2024 2:30 PM EST 12/03/2024 3:57 PM EST Ginna Cole SECURITY SME LAB BLOOD ORDERABLES Final Resu lt Performing Organization Address [facility] Co de Phone Number [facility] [address] [place] [phone] * TSH (12/03/2024 2:30 PM EST) [facility] Thyroid Stimulating Hormone 0.42 0.32 - 4.0 uIU/mL [facility] Comment:TSH 3rd Generation ( [facility]) Blood Venous blood specimen / Unknown 12/03/2024 2:30 PM EST 12/03/2024 3:57 PM EST Ginna Cole SECURITY SME LAB BLOOD ORDERABLES Final Resu lt Performing Organization Address [facility] Co de Phone Number [facility] [address] [place] [phone] * T4, Free (12/03/2024 2:30 PM EST) Pathologist [facility] Free T4 (Free Thyroxine) 1.07 0.71 - 1.85 ng/dL [facility] Blood Venous blood specimen / Unknown 12/03/2024 2:30 PM EST 12/03/2024 3:57 PM EST Ginna Munoz NP LAB BLOOD ORDERABLES Final Resu lt [facility] [address] [place] [phone] * Hepatitis C Antibody with Reflex to HCV, RNA, Quantitative, Real-Time PCR (10/22/2022 10:27 AM EST) Hepatitis C Antibody NON-REACT JAMI NON-REACT JAMI [employer] [facility] [employer] Index 0.16 <1.00 [facility] [employer] Comment: HCV antibody was non-reactive. There is no laboratory evidence of HCV infection. In most cases, no further action is required. However, if recent HCV exposure is suspected, a test for HCV RNA (test code 48477) is suggested. For additional information please refer to http://education.[employer]/faq/VFR25t8 (This link is being provided for informational/ educational purposes only.) 10/22/2022 10:2 7 AM EST 10/22/2022 10:27 AM EST Narrative [facility] - 10/25/2022 4:23 PM EST FASTING:YES FASTING: YES Hermilo Batista MD LAB BLOOD ORDERABLES Final Resul t Performing Organization Address City/[facility]/ZIP Co de Phone Number [facility] [address], [facility] [place] [phone] [email or web address] [address], [facility] [place] [address] * HIV-1/2 Antigen and Antibodies, Fourth Generation, with Reflexes (10/22/2022 10:27 AM EST) HIV Antigen/Antibody, 4th Generation NON-REAC TIVE NON-REAC TIVE [employer] Comment: HIV-1 antigen and HIV-1/HIV-2 antibodies were not detected. There is no laboratory evidence of HIV infection. PLEASE NOTE: This information has been disclosed to you from records whose confidentiality may be protected by state law. ??If your state requires such protection, then the state law prohibits you from making any further disclosure of the information without the specific written consent of the person to whom it pertains, or as otherwise permitted by law. A general authorization for the release of medical or other information is NOT sufficient for this purpose. ?? For additional information please refer to http://Animal[employer]ae.[employer]/faq/WNG465 (This link is being provided for informational/ educational purposes only.) The performance of this assay has not been clinically validated in patients less than 2 years old. 10/22/2022 10:2 7 AM EST 10/22/2022 10:27 AM EST Narrative [facility] - 10/25/2022 4:23 PM EST FASTING:YES FASTING: YES us Hermilo Batista MD LAB BLOOD ORDERABLES Final Resul t [facility] [address] [place] [phone] [employer] [address], [facility] [place] [address] * (ABNORMAL) Lipid Panel, Standard (10/22/2022 10:27 AM EST) [facility] Cholesterol, Total 187 <200 mg/dL [employer] [facility] [employer] HDL Cholesterol 46(L) > OR = 50 mg/dL [email or web address] Triglycerides 64 <150 mg/dL [employer] [facility] [email or web address] LDL Cholesterol 125(H) mg/dL (calc) [employer] [facility] [employer] Comment: Reference range: <100 Desirable range <100 mg/dL for primary prevention; ?? <70 mg/dL for patients with CHD or diabetic patients with > or = 2 CHD risk factors. LDL-C is now calculated using the Tony calculation, which is a validated novel method providing better accuracy than the Friedewald equation in the estimation of LDL-C. Josh RASHEED et al. ML. 2013;310(19): 7916-2931 (http://education.Windation.Roojoom/faq/WGW731) Chol/HDLC Ratio 4.1 <5.0 (calc) [email or web address] Non-HDL Cholesterol 141(H) <130 mg/dL (calc) [facility] Comment: For patients with diabetes plus 1 major ASCVD risk factor, treating to a non-HDL-C goal of <100 mg/dL (LDL-C of <70 mg/dL) is considered a therapeutic option. 10/22/2022 10:2 7 AM EST 10/22/2022 10:27 AM EST Narrative [facility] - 10/25/2022 4:23 PM EST FASTING:YES FASTING: YES Hermilo Batista MD LAB BLOOD ORDERABLES Final Resul t Performing Organization Address [facility] de Phone Number [facility] [address], [facility] [place] [phone] [employer] [address], [facility] [place] [address] * Hm Pap Smear (03/23/2021) Pap Negative for intraephithelial lesion or malignancy Negative for intraephithelial lesion or malignancy, Other HPV Undetected Undetected, Indeterminate, Quantitative, Not Detected Celia Chappell MD HEALTH MAINTENANCE Final Result * OCCULT BLOOD STOOL (12/09/2019 12:00 AM EST) OCCULT BLOOD STOOL NEG NEG [facility] 12/09/2019 Rose Rod MD LAB BODY FLUIDS AND STOOLS O RDERABLES Final Result [facility] [address] from Last 3 Months or Most Recently Relevant to Health Maintenance Insurance [facility] C[facility] * Guarantor: Martina Araiza Account Type Relation to Patient Date of Phone Billing Address Dental Self 1980 [address] [place] [address] [facility] MEDICAID STAND ADULT Care Teams Content Editor Relationship Specialty Start Date End Date Juliette Madden MD [address] [place], [place] PCP - General Family Medicine 12/22/24
--- OUTSIDE RECORDS SUMMARY | 2025-02-24 08:37 | XMS_ITS | Encounter Summary ---
Author Organization [facility] Address [address] [place] [address] [address] [place] [address] Care Team Providers Care Dispatcher Automobile Rental Name Role Phone Tony Azevedo Primary Care Provider Shaniqua Lee Primary Care Provider [phone] Hermilo Batista MD Primary Care Provider [phone] Arturo Cevallos CNP Primary Care Provider [phone] Juliette Madden MD Primary Care Provider [phone] Encounter Details Date Type Department Care Team (Late st Contact Info) Description 12/14/2022 Orders Only [facility] [address] [place], [place] [phone] Josefina Moreland RN Social History Tobacco Use Types Packs/Day Years Used Date Smoking Tobacco: Never Assessed Comments Unknown Sex and Gender Information Value Date Recorded Sex Assigned at Female 09/17/2022 10:15 AM EDT Legal Sex Female 10:15 AM EDT Gender Identity Female 09/17/2022 10:15 AM EDT Sexual Orientation Straight 09/17/2022 10 :15 AM EDT documented as of this encounter Plan of Treatment Not on file documented as of this encounter Visit Diagnoses Not on filedocumented in this encounter Care Teams Dispatcher Automobile Rental Relationship Specialty Start Date End Date Tony Azevedo FNP PCP - General Family Medicine 10/25/22 01/16/23 Shaniqua Gutierrez FNP [address] [place], [place] [phone] PCP - General Family Medicine 01/17/23 07/20/24 Hermilo Batista MD [address] [place], [place] [phone] PCP - General Internal Medicine 07/21/24 12/10/24 Arturo Cevallos CNP [address] [place], [place] [phone] PCP - General Family Medicine 12/11/24 12/21/24 Juliette Madden MD [address] [place], [place] [phone] PCP - General Family Medicine 12/22/24 documented as of this encounter
--- OUTSIDE RECORDS SUMMARY | 2025-02-24 08:37 | XMS_ITS | Encounter Summary ---
Author Organization [facility] Address [address] [place] [address] [address] [place] [address] Care Team Providers Care Bank Appraiser Name Role Phone Tony Azevedo Primary Care Provider Shaniqua Lee Primary Care Provider [phone] Hermilo Batista MD Primary Care Provider [phone] Arturo Cevallos CNP Primary Care Provider [phone] Juliette Madden MD Primary Care Provider Encounter Details Date Type Department Care Team (Late st Contact Info) Description 12/13/2022 Telephone [facility] [address] [place], [place] [phone] Tony Azevedo FNP Social History Tobacco Use Types Packs/Day Years [...] on filedocumented in this encounter Care Teams Bank Appraiser Relationship Specialty Start Date End Date Tony Azevedo FNP PCP - General Family Medicine 10/25/22 01/16/23 Shaniqua Gutierrez FNP [address] [place], [place] [phone] PCP - General Family Medicine 01/17/23 07/20/24 Hermilo Batista MD [address] [place], [place] [phone] PCP - General Internal Medicine 07/21/24 12/10/24 Arturo Cevallos CNP [address] [place], [place] [phone] PCP - General Family Medicine 12/11/24 12/21/24 Juliette Madden MD [address] [place], [place] [phone] PCP - General Family Medicine 12/22/24 documented as of this encounter
--- OUTSIDE RECORDS SUMMARY | 2025-02-24 08:37 | XMS_ITS | Encounter Summary ---
Author Organization [employer] [facility] Address [address] [place] [address] [address] [place] [address] Care Team Providers Care Network Support Engineer Name Role Phone Shaniqua Gutierrez Primary Care Provider [phone] Hermilo Batista MD Primary Care Provider [phone] Arturo Cevallos CNP Primary Care Provider [phone] Juliette Madden MD Primary Care Provider [phone] Reason for Visit * Reason Onset Date Comments triage 03/05/2023 Encounter Details Date Type Department Care Team (Late st Contact Info) Description 03/05/2023 Telephone [facility] [address] [place], [place] [phone] Shaniqua Gutierrez FNP [address] [place], [place] [phone] triage Social History Tobacco Use Types Packs/Day Years Used Date Smoking Tobacco: Some Days Cigarettes Passive Smoke Exposure: Never Smokeless Tobacco: Never Alcohol Use Standard Drinks/Week Comments Not Currently 0 (1 standard drink = 0.6 oz pur e alcohol) Depression Answer Date Recorded Patient Health Questionnaire-9 Score 2 01/25/2023 Depression Answer Date Recorded Patient Health Questionnaire-2 Score 0 01/25/2023 Comments Unknown Sex and Gender Information Value Date Recorded Sex Assigned at Female 09/17/2022 10:15 AM EDT Legal Sex Female 10:15 AM EDT Gender Identity Female 09/17/2022 10:15 AM EDT Sexual Orientation Straight 09/17/2022 10 :15 AM EDT documented as of this encounter Miscellaneous Notes * Telephone Encounter - Josefina Moreland RN - 03/05/2023 4:25 PM EDT Medication pended to other blue team provider * Telephone Encounter - Ana Zavaleta RN - 03/05/2023 4:12 PM EDT Call to Martina Araiza, reports feeling anxious all day but realized had ru nout of hydroxyzine whichusually takes first thing in the morning. Per pt went to pharamcy but that medication not refilled.Pt states irritable without medication. Pt advised do see both electronic refill request and message sent as well. Will send to team to review with a covering since PCP not in office today to see if Rx can be sent in to pt tonight. Reviewed [facility] operating hours should sx of anxiety worsen. Pt agrees. Also sent Kai[employer] chat message to team nurses to notify of request. Protocol Used: Medication Refill and Renewal Call (Adult) Protocol-Based Disposition: Discuss with PCP and Callback by Nurse Today Positive Triage Question: * Caller requesting a CONTROLLED substance prescription refill (e.g., narcotics, ADHD medicines) * All higher-acuity triage questions were negative * Telephone Encounter - Raul Stanley - 03/05/2023 4:07 PM EDT Symptom: Anxiety or Panic Attack Outcome: Schedule an urgent appointment (within 4 hours) or talk to a nurse or provider soon Reason: Anxiety keeps from going to school or work The caller accepted this outcome documented in this encounter Plan of Treatment Not on file documented as of this encounter Visit Diagnoses Not on filedocumented in this encounter Additional Health Concerns Assessment Noted Time PHQ-9 Depression Total Score: 2 01/26/20 23 10:19 AM EST documented as of this encounter Care Teams Network Support Engineer Relationship Specialty Start Date End Date Shaniqua Gutierrez FNP [address] [place], [place] [phone] PCP - General Family Medicine 01/17/23 07/20/24 Hermilo Batista MD [address] [place], [place] [phone] PCP - General Internal Medicine 07/21/24 12/10/24 Arturo Cevallos CNP [address] [place], [place] [phone] PCP - General Family Medicine 12/11/24 12/21/24 Juliette Madden MD [address] [place] [id number] PCP - General Family Medicine 12/22/24 documented as of this encounter
--- OUTSIDE RECORDS SUMMARY | 2025-02-24 08:37 | XMS_ITS | Encounter Summary ---
Author Organization [employer] [facility] Address [address] [place] [address] 7[address] [place] [address] Care Team Providers Care Knuckle Strap Sewer Name Role Phone Tony Azevedo Primary Care Provider Shaniqua Lee Primary Care Provider [phone] Hermilo Batista MD Primary Care Provider [phone] Arturo Cevallos CNP Primary Care Provider [phone] Juliette Madden MD Primary Care Provider [phone] Encounter Details Date Type Department Care Team (Late st Contact Info) Description 10/23/2022 Orders Only [facility] [address] [place], [place] [phone] Tony Azevedo FNP Social History Tobacco Use [...] on filedocumented in this encounter Care Teams Knuckle Strap Sewer Relationship Specialty Start Date End Date Tony Azevedo FNP PCP - General Family Medicine 10/25/22 01/16/23 Shaniqua Gutierrez FNP [address] [place], [place] [phone] PCP - General Family Medicine 01/17/23 07/20/24 Hermilo Batista MD [address] [place], [place] [phone] PCP - General Internal Medicine 07/21/24 12/10/24 Arturo Cevallos CNP [address] [place], [place] [phone] PCP - General Family Medicine 12/11/24 12/21/24 Juliette Madden MD [address] [place], [place] [phone] PCP - General Family Medicine 12/22/24 documented as of this encounter
--- OUTSIDE RECORDS SUMMARY | 2025-02-24 08:37 | XMS_ITS | Encounter Summary ---
Author Organization [employer] Address [address] 7[address] [place] [address] Care Team Providers Care Milk Sampler Name Role Phone Shaniqua Gutierrez Primary Care Provider [phone] Hermilo Batista MD Primary Care Provider [phone] Arturo Cevallos CNP Primary Care Provider [phone] Juliette Madden MD Primary Care Provider [phone] Reason for Visit * Reason Comments Med Refill Encounter Details Date Type Department Care Team (Late st Contact Info) Description 05/25/2024 Refill [facility] [address] [place], [place] [phone] Shaniqua Gutierrez FNP [address] [place] [address] Pruritic rash Social History Tobacco Use Types Packs/Day Years Used Date Smoking Tobacco: Some Days Cigarettes Passive Smoke Exposure: Never Smokeless Tobacco: Never Alcohol Use Standard Drinks/Week Comments Not Currently 0 (1 standard drink = 0.6 oz pur e alcohol) Depression Answer Date Recorded Patient Health Questionnaire-9 Score 2 01/25/2023 Housing Stability Answer Date Recorded What is your housing situation today? I have [facility]ms 09/19/[address] you [...] documented as of this encounter Visit Diagnoses Diagnosis Pruritic rash documented in this encounter Additional Health Concerns Assessment Noted Time PHQ-9 Depression Total Score: 2 01/26/20 23 10:19 AM EST documented as of this encounter Care Teams Milk Sampler Relationship Specialty Start Date End Date Shaniqua Gutierrez FNP [address] [place], [place] [phone] PCP - General Family Medicine 01/17/23 07/20/24 Hermilo Batista MD [address] [place], [place] [phone] PCP - General Internal Medicine 07/21/24 12/10/24 Arturo Cevallos CNP [address] [place] [address] PCP - General Family Medicine 12/11/24 12/21/24 Juliette Madden MD [address] [place] [address] PCP - General Family Medicine 12/22/24 documented as of this encounter
--- OUTSIDE RECORDS SUMMARY | 2025-02-24 08:37 | XMS_ITS | Encounter Summary ---
Author Organization [employer] Address [address] [facility] 7t [place] [address] Care Team Providers Care Respiratory Care Program Director Name Role Phone Shaniqua Gutierrez Primary Care Provider [phone] Hermilo Batista MD Primary Care Provider [phone] Arturo Cevallos CNP Primary Care Provider [phone] Juliette Madden MD Primary Care Provider [phone] Reason for Visit * Reason Onset Date Comments Nurse Triage 12/10/2023 Encounter Details Date Type Department Care Team (Late st Contact Info) Description 12/10/2023 Telephone [facility] [address] [place], [place] [phone] Shaniqua Gutierrez FNP [address] [place], [place] [phone] Nurse Triage Social History Tobacco Use Types Packs/Day Years [...] encounter Miscellaneous Notes * Telephone Encounter - Viv Randhawa RN - 12/10/2023 3:10 PM EST Triage call Pt reports nausea, headaches, vomiting and diarrhea for 2 weeks now. Today Pt vomited x1 in the morning, diarrhea 4-5x and nausea most of day. Yesterday Pt didn't vomit but, did have diarrhea several times. Pt reports diarrhea is mainly watery substance yellow-brown in color and has been a daily occurrence. Neg for fever but, 2 weeks ago when this started Pt had a fever for two days and then resolved. Pt doesn't feel like eating or drinking . Pt is not drinking adequate liquids. Ptis encouraged to push fluids as much as possible and Pt agrees. Pt has not home tested for Covid and Pt is not . Pt is advised to come to [facility] today or tomorrow. Hours given open till 8pm today and tomorrow 830am-800pm. Home care reviewed and Pt agrees with disposition. Insurance is verifiedas active. Protocol Used: Nausea (Adult) Protocol-Based Disposition: See in Office or Video Visit within 3 Days Video visit not offered Positive Triage Question: * Nausea lasts > 1 week * All higher-acuity triage questions were negative Care Advice Discussed: * Reassurance and Education - Nausea * Clear Fluids * Reasons To Call Back - Nausea lasts over 1 week - You become worse * Telephone Encounter - Mechelle Coats - 12/10/2023 2:43 PM EST Symptoms: Nausea But No Vomiting, Chest Pain - Adult Outcome: Schedule an urgent appointment (within 1 hour) or talk to a nurse or provider soon Reason: Caller denied all higher acuity questions The caller accepted this outcome Please contact pt @ [phone] or [phone] documented in this encounter Plan of Treatment Not on file documented as of this encounter Visit Diagnoses Not on filedocumented in this encounter Additional Health Concerns Assessment Noted Time PHQ-9 Depression Total Score: 2 01/26/20 10:19 AM EST documented as of this encounter Care Teams Respiratory Care Program Director Relationship Specialty Start Date End Date Shaniqua Gutierrez FNP [address] [place] [address] PCP - General Family Medicine 01/17/23 07/20/24 Hermilo Batista MD [address] [place] [address] PCP - General Internal Medicine 07/21/24 12/10/24 Arturo Cevallos CNP [address] [place] [address] PCP - General Family Medicine 12/11/24 12/21/24 Juliette Madden MD [address] [place] [address] PCP - General Family Medicine 12/22/24 documented as of this encounter
[2025-02-24 08:47] LABS: MANUAL DIFF FLAG NO
[2025-02-24 09:25] LABS: Basophils Percent Auto 0.5 % (0-2); Eosinophils Absolute Auto 0.3 X10*3/uL (0.0-0.4); Eosinophils Percent Auto 3.4 % (0-4); Hematocrit 36.6 % (37.0-47.0); Hemoglobin 11.8 g/dl (12.0-16.0); Imm Gran Abs Auto 0.03 X10*3/uL (0.00-0.03); Imm Gran Pct Auto 0.4 % (0.0-0.4); Lymphocytes Absolute Auto 1.7 X10*3/uL (1.2-4.9); Lymphocytes Percent Auto 22.9 % (20-40); Mean Corpuscular HGB Conc 32.2 g/dl (31.0-35.0); Mean Corpuscular Hemoglobin 29.6 pg (27.0-33.0); Mean Platelet Volume 10.4 fL (9.4-12.3); Monocytes Absolute Auto 0.5 X10*3/uL (0.1-1.2); Monocytes Percent Auto 7.1 % (2-11); Neutrophils Percent Auto 65.7 % (45-73); Platelet Count 325 X10*3/uL (160-400); Red Blood Count 3.98 X10*6/uL (4.20-5.50); Red Cell Distribution Width 13.1 % (11.0-16.0); White Blood Count 7.6 X10*3/uL (4.8-10.8)
[2025-02-24 09:30] LABS: Estimated Average Glucose 97 mg/dL; Hemoglobin A1C 99.5411 umol/L; Total Hemoglobin (HGBA1C) 3146.1861 umol/L
[2025-02-24 10:01] LABS: Alanine Aminotransferase 10 U/L (0-31); Albumin Level 4.1 g/dL (3.5-5.0); Alkaline Phosphatase 78 U/L (39-117); Anion Gap 10 (12-20); Aspartate Amino Transferase 18 U/L (5-31); Bilirubin Total 0.2 mg/dL (0.0-1.0); Blood Urea Nitrogen 11 mg/dL (9-16); Calcium 8.9 mg/dL (8.4-10.2); Carbon Dioxide 23 mmol/L (22-29); Chloride 112 mmol/L (96-108); Cholesterol 145 mg/dL (<200); Estimated Glomerular Filt Rate > 60; Glucose Fasting 93 mg/dL (60-99); HDL Cholesterol 45 mg/dL (>40); Iron 48 mcg/dL (30-160); LDL Cholesterol Calculated 88 mg/dL (<100); Magnesium 1.8 mg/dL (1.6-2.6); Percent Iron Saturation 19 % (15-50); Phosphorus 3.2 mg/dL (2.7-4.5); Potassium 3.5 mmol/L (3.3-5.1); Sodium 141 mmol/L (135-145); Total Iron Binding Capacity 259 mcg/dL (228-428); Total Protein 7.3 g/dL (6.5-8.0); Triglycerides 60 mg/dL (<150); Unsaturated Iron Binding 211 ug/dL
[2025-02-24 10:11] LABS: HBS Num1 54.76 mIU/mL (0-7.99); HBc Num1 0.07 S/CO (0.00-0.79); HBsAGNum1 0.37 S/CO (0.00-0.99); HIV AB/AG Nonreactive (Nonreactive); HIV Num 1 0.06 S/CO (0.00-0.99); Hepatitis B Core Antibody Nonreactive (Nonreactive); Hepatitis B Surface Antigen Negative (Negative); ~HepC Num1 0.12 S/CO (0.00-0.79); ~Hepatitis B Surface Antibody REACTIVE (Nonreactive); ~Hepatitis C Antibody Nonreactive (Nonreactive)
[2025-02-24 10:15] LABS: Syphilis Screen Nonreactive (Nonreactive)
[2025-02-24 10:16] LABS: Erythrocyte Sedimentation Rate 12 MM/HR (0-20)
[2025-02-24 10:21] LABS: Folate 6.6 ng/mL (> or = 4.0); Vitamin B12 496 pg/mL (200-900)
[2025-02-24 10:26] LABS: Free T4 (Free Thyroxine) 1.11 ng/dL (0.71-1.85); Thyroid Stimulating Hormone 0.64 uIU/mL (0.32-4.0); Vitamin D 25-OH Total 16.7 ng/mL (>30)
[2025-02-24 10:52] LABS: CT PCR NOT DETECTED (Not Detect.); NG PCR NOT DETECTED (Not Detect.)
[2025-02-25 06:22] LABS: Triiodothyronine T3 Free 3.2 pg/mL (2.3-4.2); Triiodothyronine T3 Total 95 ng/dL (76-181)
[2025-02-25 19:12] LABS: Thyroglobulin Antibodies <1 IU/mL (< or = 1); Thyroid Peroxidase Antibodies 2 IU/mL (<9)
[2025-03-01 14:53] LABS: Thyroid Stimulating Immunoglob <89 % baseline (<140)
[2025-03-01 16:33] LABS: Methylmalonic Acid 145 nmol/L (55-335)
[2025-03-13 10:13] LABS: Vitamin B1 9 nmol/L (8-30)
== END 2025-02-24 08:26 | disposition home or self-care (01) ==
LOC: HO.LAB 08:25
PROVIDERS: Visit Provider Psychiatry & Neurology Psychiatry
DX: F39 Unspecified mood [affective] disorder (principal); F41.3 Other mixed anxiety disorders; E04.2 Nontoxic multinodular goiter
CPT/HCPCS: 80053; 80061; 82306; 82607; 82746; 83036; 83090; 83540; 83735; 83921; 83970; 84100; 84425; 84439; 84443; 84445; 84480; 84481; 85025; 85652; 86376; 86704; 86706; 86780; 86800; 86803; 87340; 87389; 87491; 87591; 93005

== ENCOUNTER → 2025-02-24 08:30 | Outpatient (BNV) | payer MEDICAID, SELFPAY | PROVIDERS: Visit Provider Internal Medicine Cardiovascular Disease | DX: R00.1 Bradycardia, unspecified (principal) | CPT/HCPCS: 93010 ==

== ENCOUNTER 2025-03-09 12:00 | Outpatient (RCR) | payer MEDICAID, SELFPAY ==
--- NOTE | 2025-02-19 13:59 | P.HPPSP_ITS ---
HPI Date of Service: 02/19/25 Chief Complaint: bipolar,PTSD,ADD,NATALIO [facility] Medical History (Updated 06/10/23 @ 22:20 by Se Ceron MD) Polyp, corpus uteri Cyst of left ovary Polyp of gallbladder Vitamin D deficiency Multinodular thyroid Graves disease Surgical History Hx of removal of cyst Hx of section Diagnostics Vital Signs (24Hr): BMI result Body Mass Index 25.1 Meds/Allergies Meds Home Medications ?Medication ?Instructions ?Recorded ?Confirmed ?Type albuterol sulfate 90 mcg/actuation 2 puff inhalation Q4-6H PRN dyspnea 05/24/23 02/19/25 History aerosol inhaler (Ventolin HFA) bupropion HCl 300 mg 24 hr tablet, 300 mg PO QAM 05/24/23 02/19/25 History extended release hydroxyzine HCl 25 mg tablet 25 mg PO Q12H PRN Anxiety 05/24/23 02/19/25 History Allergies Allergies Allergy/AdvReac Type Severity Reaction Status Date / Time No Known Allergies Allergy Verified 07/27/21 10:43 Assessment & Plan Assessment & Plan (1) Bipolar 2 disorder, major depressive episode: Status: Acute Code(s): F31.81 - Bipolar II disorder (2) Post traumatic stress disorder (PTSD): Status: Acute Code(s): F43.10 - Post-traumatic stress disorder, unspecified Plan Admit to [facility] reviewed: afebrile, BP 115/83;?75 bpm start Abilify 1-2 mg qhs start clonidine 0.1 mg q 6hrs prn anxiety continue other regular medications? Routine lab work ordered as indicated EKG, routine for baseline QTc for medication considerations as indicated UDS as indicated [facility] reviewed Continue to monitor as per protocol Patient educated on: diagnosis, medication risk/benefits and substance abuse Informed Consent: understands Reason for continued partial hosp. stay Substantial Risk for: inability to function, rapid decompensation and med/psych decompensation Certification I certify that partial hospital treatment is medically necessary due to the symptoms and problems resulting from the patient's mental illness and the failure to treat the patient at the partial hospital level of care would likely result in the patient requiring inpatient psychiatric care which could not be prevented at a less intensive level of care. Time Spent With Patient Time: Total time managing care of this patient today __60__ minutes.
[2025-02-19 14:13] VITALS: BP 115/83; PULSE 75; TEMP 37.1; BMI 25.1
--- NOTE | 2025-02-19 14:58 | PC.ADMIT ---
Martina Araiza is a 44 year old female single who was referred for PHP through her therapist. Martina has a diagnosis of bipolar II, general anxiety and cannabis use unspecified, also reported PTSD and ADHD. Martina was enrolled in the PHP program in May of 2023. Martina reports feeling like she doesn?t know who she is, her youngest child recently turned 18 and tearfully explained that she does not know what to do with herself. She endorses anxiety levels at 7-8/10 and feels that depression ?comes and goes,? however; reports feelings of hopelessness, helplessness, disturbed sleep, and isolation. Martina describes her sleep as, ?trouble falling asleep and staying asleep - identifying racing thoughts as a factor before going to sleep and after waking up in the very early hours and not being able to return to sleep. Martina identified wanting to find structure and purpose in her life. Martina denies active and passive SI however explained that a couple of weeks ago she ran out of her bupropion and did not have it for a couple of days and felt the overwhelming urge to self harm by cutting as she has done in the past (she reports stopping this behavior over a year ago).Martina is able to to alert staff if feeling unsafe. Martina reports smoking marijuana a few times a week and per report would like to address this use while in the PHP program.?Martina requested HIV testing-though not currently engaged in any high risk behavior.
--- NOTE | 2025-02-25 15:25 | HO.PHP ---
Client's case has been opened and reviewed in team.
--- NOTE | 2025-02-26 12:24 | HO.PHPPROGNO ---
Subjective Subjective Date of Service: 02/26/25 Reason For Visit: bipolar,PTSD,ADD,NATALIO Diagnostics Vital Signs (24Hr): BMI result Body Mass Index 25.1 Assessment & Plan Certification I certify that partial hospital treatment is medically necessary due to the symptoms and problems resulting from the patient's mental illness and the failure to treat the patient at the partial hospital level of care would likely result in the patient requiring inpatient psychiatric care which could not be prevented at a less intensive level of care. Total time managing care of this patient today ____ minutes. Discharge Plan Discharge Attending provider: Hannah Cao Medications: New clonidine HCl 0.1 mg tablet 0.1 mg PO BID PRN (Reason: anxiety, sleep) Qty: 30 0RF aripiprazole 2 mg tablet 2 mg PO BEDTIME Qty: 14 0RF trazodone 50 mg tablet 50 mg PO BEDTIME PRN (Reason: insomnia) Qty: 30 0RF ergocalciferol (vitamin D2) [Vitamin D2] 1,250 mcg (50,000 unit) capsule 1,250 mcg PO QWEEK Qty: 12 0RF Continued hydroxyzine HCl 25 mg tablet 25 mg PO Q12H PRN (Reason: Anxiety) bupropion HCl 300 mg tablet extended release 24 hr 300 mg PO QAM albuterol sulfate [Ventolin HFA] 90 mcg/actuation HFA aerosol inhaler 2 puff INHALATION Q4-6H PRN (Reason: dyspnea) Changed lamotrigine [Lamictal] 25 mg tablet 75 mg PO DAILY 15 Days Qty: 45 0RF Discontinued mirtazapine 30 mg tablet 15 mg PO BEDTIME clonidine HCl 0.1 mg tablet 0.1 mg PO DAILY PRN (Reason: anxiety) Qty: 10 1RF Print Language: Salvadorean
--- NOTE | 2025-03-05 13:27 | HO.PHP ---
[facility] staff member reached out to Martina via telephone due to her not being able to answer the risk assessment questions and leaving half day. With it being a long weekend, [facility] staff member wanted to assess safety. Martina mentioned this morning she was feeling like bren didn't want to get out of bed. Martina stated that she is currently feeling okay, emotional with it being her mothers anniversary. Martina feels as though she met her goal of staying positvie. Martina identified her coping skills to be listening to music and spend time at the park. Martina reported no concerns around SI, plan or intent. After program, Martina is going to go to the two interviews and stop [facility]. Martina has therapeutic supports in place for discharge.
--- NOTE | 2025-03-09 22:39 | P.PNPSP_ITS ---
Subjective Subjective Date of Service: 03/09/25 Reason For Visit: bipolar,PTSD,ADD,NATALIO Interim History: Patient seen for follow-up, anticipating discharge at the end of program today.? Reports no acute issues or concerns. Medication compliant, medications well- tolerated. Denies any adverse effects.? Mood is stable.? Denies any hopelessness or SI. Denies thoughts of harming self or others at this time. Denies any aggressive ideation or HI. Denies any paranoia or AH or VH. Sleep, appetite, energy stable. Alert, oriented, in no acute distress. Calm, cooperative. Mood stable, affect appropriate. Speech normal. Thought process linear, coherent, more goal- directed. Thought content related to stressors, future-oriented, denies any helplessness, hopelessness or SI.? No aggressive ideation or HI. No paranoia or delusional content elicited. No evidence of psychosis. Insight and judgment fair-good. Discharge from [facility] Continue regular medications Refills sent to pharmacy Will defer further medication management to outpatient provider *Safety plan reviewed *Discharge diagnoses, treatment course, discharge plan have been reviewed with patient (including medication regime, medication management, potential side effects) as well as treatment rationale were also revisited *Discharge paperwork signed and given to patient, copy sent for scanning to chart Diagnostics Vital Signs (24Hr): BMI result Body Mass Index 25.1 Assessment & Plan Certification I certify that partial hospital treatment is medically necessary due to the symptoms and problems resulting from the patient's mental illness and the failure to treat the patient at the partial hospital level of care would likely result in the patient requiring inpatient psychiatric care which could not be prevented at a less intensive level of care. Total time managing care of this patient today ____ minutes. Discharge Plan Discharge Attending provider: Hannah Cao Medications: New trazodone 50 mg tablet 50 mg PO BEDTIME PRN (Reason: insomnia) Qty: 30 0RF ergocalciferol (vitamin D2) [Vitamin D2] 1,250 mcg (50,000 unit) capsule 1,250 mcg PO QWEEK Qty: 12 0RF lamotrigine 150 mg tablet 150 mg PO DAILY Qty: 30 0RF clonidine HCl 0.1 mg tablet 0.1 mg PO BEDTIME Qty: 30 0RF Continued hydroxyzine HCl 25 mg tablet 25 mg PO Q12H PRN (Reason: Anxiety) albuterol sulfate [Ventolin HFA] 90 mcg/actuation HFA aerosol inhaler 2 puff INHALATION Q4-6H PRN (Reason: dyspnea) bupropion HCl 300 mg tablet extended release 24 hr 300 mg PO QAM Qty: 30 0RF aripiprazole 2 mg tablet 2 mg PO BEDTIME Qty: 30 0RF Discontinued mirtazapine 30 mg tablet 15 mg PO BEDTIME clonidine HCl 0.1 mg tablet 0.1 mg PO DAILY PRN (Reason: anxiety) Qty: 10 1RF lamotrigine [Lamictal] 25 mg tablet 25 mg PO DAILY 14 Days Qty: 14 0RF Patient Education: Bipolar Disorder (ED), Bipolar Disorder (DC), Depression (ED), Depression (DC), Anxiety (ED) Print Language: Montserratian
== END 2025-03-09 23:59 | disposition home or self-care (01) ==
LOC: HO.PHPA 12:00
PROVIDERS: Visit Provider Psychiatry & Neurology Psychiatry
DX: F31.81 Bipolar II disorder (principal); F43.10 Post-traumatic stress disorder, unspecified
CPT/HCPCS: 90791; 90853

== ENCOUNTER → 2025-03-09 12:00 | Outpatient (BNV) | payer OTHER, SELFPAY | PROVIDERS: Visit Provider Psychiatry & Neurology Psychiatry | DX: F31.81 Bipolar II disorder (principal); F43.10 Post-traumatic stress disorder, unspecified; F90.9 Attention-deficit hyperactivity disorder, unspecified type | CPT/HCPCS: 99499 ==

== ENCOUNTER → 2025-03-09 12:00 | Outpatient (BNV) | payer OTHER, SELFPAY | PROVIDERS: Visit Provider Psychiatry & Neurology Psychiatry | DX: F31.81 Bipolar II disorder (principal); F43.10 Post-traumatic stress disorder, unspecified | CPT/HCPCS: 99499 ==

== ENCOUNTER 2025-03-11 10:48 | Outpatient (RCR) | payer MEDICAID, SELFPAY | END 2025-04-07 11:52 | disposition home or self-care (01) | LOC: HO.PT 10:48 | PROVIDERS: PCP General Practice; Visit Provider Nurse Practitioner | DX: M25.511 Pain in right shoulder (principal); G89.29 Other chronic pain | CPT/HCPCS: 97110; 97161; 97535 ==

== ENCOUNTER 2025-04-16 14:18 | Outpatient (REF) | payer MEDICAID, SELFPAY ==
--- NOTE | ~2025-04-16 | XR_ITS ---
EXAMINATION: XR CHEST CLINICAL INFORMATION: wt loss, anterior right swelling at clavicle level no trauma COMPARISON: 01/29/2022. TECHNIQUE: 2 views of the chest were obtained. FINDINGS: The cardiac, hilar, and mediastinal contours are normal. The lungs are clear bilaterally. There is no pneumothorax or pleural effusion. There is no focal osseous or soft tissue abnormality. XR/XR chest 2V IMPRESSION: Normal chest. Electronically signed by: Eulogio Hagen MD 04/16/2025 02:44 PM EDT
--- OUTSIDE RECORDS SUMMARY | 2025-04-16 14:21 | XMS_ITS | Encounter Summary ---
Author Organization [employer] Address [address] [place] [address] Care Team Providers Care General Service Officer Name Role Phone Juliette Madden MD Primary Care Provider [phone] Reason for Visit * Reason Comments Shoulder Pain Neck Pain Encounter Details Date Type Department Care Team (Late st Contact Info) Description 04/16/2025 2:20 PM EDT Office Visit [facility] [address] [place] [address] Other chest pain (Primary Dx) Social History Tobacco Use Types Packs/Day Years [...] AM EDT documented as of this encounter Last Filed Vital Signs Vital Sign Reading Time Taken Comments Blood Pressure 116/71 04/16/2025 2:02 PM EDT Pulse 73 04/16/2025 2:02 PM EDT Temperature 36.7 ??C (98.1 ??F) 04/16/2025 2:02 PM ED T Respiratory Rate 17 04/16/2025 2:02 PM EDT Oxygen Saturation 97% 04/16/2025 2:02 PM EDT Inhaled Oxygen Concentration - - Weight 66.8 kg (147 lb 3.2 oz) 04/16/2025 2:02 P M EDT Height - - Body Mass Index 25.27 07/09/2024 9:11 AM EDT documented in this encounter Plan of Treatment Upcoming Encounters Date Type Department Care Team (Late st Contact Info) Description 06/23/2025 2:00 PM EDT Office Visit [facility] [address] [place] [address] Juliette Madden MD [address] [place] [address] Scheduled Orders Name Type Priority Associated Diagnoses Orde r Schedule XR Chest 2 Views Imaging Routine Other chest pain Expected: 04/16/2025, Expires: 04/16/2026 CBC auto differential Lab Routine Other chest pain Expected: 04/16/2025 (Approximate), Expires: 04/16/2026 TSH W/Reflex to FT4 Lab Routine Other chest pain Expected: 04/16/2025 (Approximate), Expires: 04/16/2026 Basic Metabolic Panel Lab Routine Other chest pain Expected: 04/16/2025 (Approximate), Expires: 04/16/2026 documented as of this encounter Visit Diagnoses Diagnosis Other chest pain- Primary documented in this encounter Additional Health Concerns Assessment Noted Time PHQ-9 Depression Total Score: 2 01/26/20 23 10:19 AM EST documented as of this encounter Care Teams General Service Officer Relationship Specialty Start Date End Date Juliette Madden MD [address] [place] [address] PCP - General Family Medicine 12/22/24 documented as of this encounter
== END 2025-04-16 14:19 | disposition home or self-care (01) ==
LOC: HO.HHCX 14:18
PROVIDERS: Visit Provider Nurse Practitioner Family
DX: R07.89 Other chest pain (principal)
CPT/HCPCS: 71046

== ENCOUNTER → 2025-04-16 14:19 | Outpatient (BNV) | payer MEDICAID, SELFPAY | PROVIDERS: Visit Provider Radiology Diagnostic Radiology | DX: R22.31 Localized swelling, mass and lump, right upper limb (principal) | CPT/HCPCS: 71046 ==

== ENCOUNTER 2025-04-16 14:26 | Outpatient (REF) | payer MEDICAID, SELFPAY ==
[2025-04-16 17:02] LABS: MANUAL DIFF FLAG NO
[2025-04-16 17:19] LABS: Basophils Absolute Auto 0.1 X10*3/uL (0.0-0.2); Basophils Percent Auto 0.5 % (0-2); Eosinophils Absolute Auto 0.3 X10*3/uL (0.0-0.4); Eosinophils Percent Auto 2.8 % (0-4); Hematocrit 40.3 % (37.0-47.0); Imm Gran Abs Auto 0.03 X10*3/uL (0.00-0.03); Imm Gran Pct Auto 0.3 % (0.0-0.4); Lymphocytes Percent Auto 21.7 % (20-40); Mean Corpuscular HGB Conc 32.3 g/dl (31.0-35.0); Mean Corpuscular Hemoglobin 29.7 pg (27.0-33.0); Mean Corpuscular Volume 92.2 fL (80.0-98.0); Mean Platelet Volume 9.9 fL (9.4-12.3); Monocytes Absolute Auto 0.7 X10*3/uL (0.1-1.2); Neutrophils Absolute Auto 6.3 x10*3/uL (2.0-8.3); Neutrophils Percent Auto 67.7 % (45-73); Platelet Count 372 X10*3/uL (160-400); Red Blood Count 4.37 X10*6/uL (4.20-5.50); Red Cell Distribution Width 12.8 % (11.0-16.0); White Blood Count 9.3 X10*3/uL (4.8-10.8)
[2025-04-16 17:30] LABS: Anion Gap 9 (12-20); Blood Urea Nitrogen 12 mg/dL (9-16); Calcium 9.4 mg/dL (8.4-10.2); Carbon Dioxide 27 mmol/L (22-29); Chloride 107 mmol/L (96-108); Estimated Glomerular Filt Rate > 60; Glucose Random 74 mg/dL (60-115); Potassium 3.8 mmol/L (3.3-5.1); Sodium 139 mmol/L (135-145)
[2025-04-16 17:48] LABS: TSH reflex Free T4 0.46 uIU/mL (0.32-4.0)
== END 2025-04-16 14:27 | disposition home or self-care (01) ==
LOC: HO.HHCL 14:26
PROVIDERS: Visit Provider Nurse Practitioner Family
DX: Z13.89 Encounter for screening for other disorder (principal)
CPT/HCPCS: 36415; 80048; 84443; 85025

== ENCOUNTER 2025-08-17 10:21 | Outpatient (REF) | payer MEDICAID, SELFPAY ==
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
--- OUTSIDE RECORDS SUMMARY | 2025-08-17 11:30 | XMS_ITS | Clinical Summary ---
Author Organization [employer] Address [address] [facility] 7t [place] [address] Care Team Providers Care Clam Sorter Name Role Phone Juliette Madden MD Primary Care Provider [phone] Allergies No known active allergies Medications omeprazole (PriLOSEC) [address] capsule Take 1 capsule by mouth at bed time. 10/18/20 20 Active buPROPion XL (Wellbutrin XL) 300 MG 24 hr tablet Take 300 mg by mouth in the morning. 01/15/20 24 Active mirtazapine (Remeron) 15 MG tablet Take 15 mg by mouth at bedtime. 01/15/20 24 Active cloNIDine (Catapres) 0.1 MG tablet Take 0.1 mg by mouth if needed at bedtime. 01/15/20 24 Active acetaminophen (Tylenol 8 Hour) 650 MG ER [...] HOURS 120 tablet 1 02/02/20 25 Active fluticasone (Flonase) 50 MCG/ACT nasal spray USE 2 SPRAYS IN EACH NOSTRIL ONCE DAILY 48 g 04/02/20 25 Active ARIPiprazole (Abilify) 2 MG tablet Take 1 tablet by mouth Once per day. 08/06/20 25 Active ergocalciferol (Vitamin D2) 1.25 MG (93528 UT) capsule Take 1 capsule by mouth every 7 (seven) days. 02/27/20 25 Active traZODone (Desyrel) 50 MG tablet Take 50 mg by mouth at bedtime. 08/06/20 25 Active lamoTRIgine (LaMICtal) 150 MG tablet Take 1 tablet by mouth Once per day. 08/06/20 25 Active cholecalcifero l (Vitamin D-3) 25 MCG (1000 UT) tablet Take 1 tablet (25 mcg) by mouth Once per day. 30 tablet 2 08/17/20 25 025 Active montelukast (Singulair) 10 MG tablet Take 1 tablet (10 mg) by mouth in the morning. 90 tablet 2 05/01/20 025 Discontinued calamine-zinc oxide lotionIndicati ons:Pruritic rash Apply topically if needed in the morning, at noon, in the evening, and at bedtime (Skin irritation). 120 mL 05/28/20 23 025 Discontinued hydrOXYzine HCl (Atarax) 25 MG tabletIndicati ons:Mixed anxiety and depressive disorder TAKE 1 TABLET BY MOUTH EVERY TWELVE HOURS NEEDED 60 tablet 07/19/20 025 Discontinued triamcinolone (Kenalog) 0.1 % creamIndicatio ns:Pruritic rash APPLY TOPICALLY TO AFFECTED AREA(S) ONE OR TWO TIMES DAILY NEEDED FOR ITCHING FOR 1 TO 2 WEEKS 30 g 2 08/19/20 23 025 Discontinued methIMAzole (Tapazole) 5 MG tabletIndicati ons:Graves' disease TAKE 1 TABLET BY MOUTH DAILY IN THE MORNING 90 tablet 09/27/20 23 025 Discontinued lamoTRIgine (LaMICtal) 25 MG tablet TAKE 1 TABLET BY MOUTH EVERY DAY FOR FOURTEEN DAYS THEN INCREASE TO 2 TABLETS DAILY FOR MOOD 01/15/20 025 Discontinued albuterol (Ventolin HFA) 108 (90 Base) MCG/ACT inhaler INHALE 2 PUFFS BY MOUTH EVERY 4 TO 6 HOURS NEEDED FOR DIFFICULTY BREATHING DO NOT EXCEED 8 PUFFS 18 g 3 05/08/20 24 025 Discontinued cetirizine (ZyrTEC) 10 MG tablet Take 1 tablet (10 mg) by mouth Once per day. 30 tablet 11 07/09/20 24 025 Discontinued Active Problems Problem Noted Date Diagnosed Date Bipolar 1 disorder (CMS/HCC) 08/16/2025 Graves disease 08/16/2025 Mild intermittent asthma without complication Other chest pain 04/16/2025 Assessment & Plan (04/17/2025 5:22 PM EDT): Diffuse Swelling and tenderness below anterior right clavicle, Denies msk strain, no focal lymphadenopathy however pt does endorse unintentional wt loss, Will order chest x-ray, and labs Pt to Return to clinic if symptoms persist despite negative work up Seasonal allergies 10/23/2022 Adenomyomatosis of gallbladder 10/23/2022 Cyst of left ovary 03/19/2018 Polyp of corpus uteri 03/19/2018 Polyp of gallbladder 12/04/2017 Thyroid nodule 08/17/2016 Graves' disease 08/10/2016 Mood disorder 08/10/2016 Depression 02/08/2010 Resolved Problems Problem Noted Date Diagnosed Date Resolved Date Helicobacter pylori gastritis 10/23/2022 10/23/2022 Encounters Date Type Department Care Team Description 08/17/2025 9:45 AM EDT Office Visit [facility] [address] [place] [address] Arturo Cevallos CNP Encounter for physical examination (Primary Dx); Encounter for screening mammogram for breast cancer; Encounter for screening for malignant neoplasm of colon; Multiple thyroid nodules; Tobacco use; Injury of head, sequela 08/17/2025 Travel 08/16/2025 Telephone [facility] [address] [place] [address] Juliette Madden MD chart prep 08/10/2025 Patient Outreach [address] [address] Juliette Madden MD Pre-visit Planning ((Unable to reach for PVP screening, LVM) to be completed in office ) 06/23/2025 Telephone [facility] [address] [place] [address] Juliette Madden MD No Show 06/22/[address] [address] Juliette Madden MD chart prep 06/16/2025 Patient Outreach [facility] [address] [place] [address] Juliette Madden MD Pre-visit Planning ([facility] unable to reach LVM ) from Last 3 Months Immunizations Immunization Administration Dates Next Due Hep B, adult 08/10/2020,08/30/2017,07/31/2017 Influenza Whole 10/02/2007 Influenza injectable quadriv alent preservative free 09/28/2022 Pfizer Covid-19 Vaccine 12+ 08/02/2021, 1 Pneumococcal Polysaccharide PPSV23 08/10/2016 Tdap 08/10/2020 Family [...] housing situation today? I have [place] helms 08/17/[address] you [...] Mass Index 26.26 08/17/2025 9:51 AM EDT Plan of Treatment Upcoming Encounters Date Type Department Care Team (Late st Contact Info) Description 02/02/2026 3:30 PM EDT Office Visit [facility] [address] [place] [address] Geoffrey, Brinda, OD [address] [place] [address] Health Maintenance Due Date Last Done Comments CT Colonography 1979 Colonoscopy 1979 Dental Prophylaxis 1979 FIT DNA/Cologuard 1979 FIT 1979 Sigmoidoscopy 1979 Dental Oral Exam 06/04/2013 12/04/2012 Dental X-Ray: Full Mouth 12/05/2015 12/04/2012 Mammogram 2019 Colorectal Cancer Screening 12/09/2020 FOBT 12/09/2020 12/09/2019 Dental X-Ray: Bitewings 06/28/2024 06/27/20, 12/04/2012 Cervical Cancer Screening 03/23/2026 HPV/Cotest 03/23/2026 03/23/2021 Pap Smear 03/23/2026 03/23/2021 Influenza Vaccine (#1) 2026 , 10/02/2007 Postponed from 07/19/2025 (Patient Refused) Alcohol/Substance Use Screening 08/17/2026 08/17/2025 COVID-19 Vaccine ( - 2024-2 6 season) 2026 08/02/2021, 07/12/2021 Postponed from 07/19/2025 (Patient Refused) Depression Screening 08/17/2026 08/17/2025, 08/17/2025 Disability Screening 08/17/2026 08/17/2025 Family Planning (PISQ) 08/17/2026 08/17/2025 Pneumococcal Vaccine: Pediatrics (0 to 5 Years) and At-Risk Patients (6 to 49) Years (2 of 2 - PCV) 08/17/2026 08/10/2016 Postponed from 07/20 (Patient Refused) SDOH Screening 08/17/2026 08/17/2025 Tobacco Screening 08/17/2026 08/17/2025 Lipid Panel 10/22/2027 10/22/2022 Zoster Vaccines (1 [...] patient's age to complete this topic Meningococcal B Vaccine Aged Out No l onger eligible based on patient's age to complete [...] Procedure Name Priority Date/Time Associated Diagnosis Comments BITEWING - SINGLE RADIOGRAPHIC IMAGE Routine 06/27/2023 [...] Recently Relevant to Health Maintenance Results * Hepatitis C Antibody with Reflex to HCV, RNA, Quantitative, Real-Time PCR (10/22/2022 10:27 AM EST) Hepatitis C Antibody NON-REACT JAMI NON-REACT JAMI [facility] Index 0.16 <1.00 [facility] Comment: HCV antibody was non-reactive. There is no laboratory evidence of HCV infection. In most cases, no further action is required. However, if recent HCV exposure is suspected, a test for HCV RNA (test code 71466) is suggested. For additional information please refer to http://education.Yi De/faq/OAJ43o1 (This link is being provided for informational/ educational purposes only.) 10/22/2022 10:2 7 AM EST 10/22/2022 10:27 AM EST Narrative [facility] - 10/25/2022 4:23 PM EST FASTING:YES FASTING: YES Hermilo Batista MD LAB BLOOD ORDERABLES Final Resul t Performing Organization Address [facility] Phone Number [address], [place] [address] [employer] [place] [facility] [address], [place] [address] * HIV-1/2 Antigen and Antibodies, Fourth Generation, with Reflexes (10/22/2022 10:27 AM EST) Pathologist [facility] HIV Antigen/Antibody, 4th Generation NON-REAC TIVE NON-REAC TIVE [facility] [place] [employer] Comment: HIV-1 antigen and HIV-1/HIV-2 antibodies were not detected. There is no laboratory evidence of HIV infection. PLEASE NOTE: This information has been disclosed to you from records whose confidentiality may be protected by state law. If your state requires such protection, then the state law prohibits you from making any further disclosure of the information without the specific written consent of the person to whom it pertains, or as otherwise permitted by law. A general authorization for the release of medical or other information is NOT sufficient for this purpose. For additional information please refer to http://education.Animal Innovations.Knewton/faq/LTO223 (This link is being provided for informational/ educational purposes only.) The performance of this assay has not been clinically validated in patients less than 2 years old. 10/22/2022 10:2 7 AM EST 10/22/2022 10:27 AM EST Narrative [facility] - 10/25/2022 4:23 PM EST FASTING:YES FASTING: YES Hermilo Batista MD LAB BLOOD ORDERABLES Final Resul t Performing Organization Address [facility] Co de Phone Number [address], [place] [address] [employer] [place] [employer] [address] [place] [address], [place] [address] * (ABNORMAL) Lipid Panel, Standard (10/22/2022 10:27 AM EST) Cholesterol, Total 187 <200 mg/dL [employer] [place] [facility] HDL Cholesterol 46(L) > OR = 50 mg/dL [facility] [place] [facility] Triglycerides 64 <150 mg/dL [facility] [place] [facility] LDL Cholesterol 125(H) mg/dL (calc) [facility] [place] [facility] Comment: Reference range: <100 Desirable range <100 mg/dL for primary prevention; <70 mg/dL for patients with CHD or diabetic patients with > or = 2 CHD risk factors. LDL-C is now calculated using the Tony calculation, which is a validated novel method providing better accuracy than the Friedewald equation in the estimation of LDL-C. Josh RASHEED et al. ML. 2013;310(19): 0035-1659 (http://education.EndoLumix Technology/faq/ATW393) Chol/HDLC Ratio 4.1 <5.0 (calc) [facility] [place] [facility] Non-HDL Cholesterol 141(H) <130 mg/dL (calc) [facility] [place] [facility] Comment: For patients with diabetes plus 1 major ASCVD risk factor, treating to a non-HDL-C goal of <100 mg/dL (LDL-C of <70 mg/dL) is considered a therapeutic option. 10/22/2022 10:2 7 AM EST 10/22/2022 10:27 AM EST Narrative [facility] - 10/25/2022 4:23 PM EST FASTING:YES FASTING: YES us Hermilo Batista MD LAB BLOOD ORDERABLES Final Resul t [address], [place] [address] [facility] [address], [place] [address] * Hm Pap Smear (03/23/2021) Pathologist [facility] Pap Negative for intraephithelial lesion or malignancy Negative for intraephithelial lesion or malignancy, Other HPV Undetected Undetected, Indeterminate, Quantitative, Not Detected Historical Provider HEALTH MAINTENANCE Final Result * OCCULT BLOOD STOOL (12/09/2019 12:00 AM EST) OCCULT BLOOD STOOL NEG NEG [facility] 12/09/2019 Rose Rod MD LAB BODY FLUIDS AND STOOLS O RDERABLES Final Result [facility] [address] from Last 3 Months or Most Recently Relevant to Health Maintenance Insurance [facility] C3 * Guarantor: Martina Araiza Account Type Relation to Patient Date of Phone Billing Address Dental Self [address] [place] [address] DENTAL-[facility] MEDICAID STAND ADULT * Guarantor: Martina Araiza Account Type Relation to Patient Date of Phone Billing Address Personal/Family Self [address] [place] Care Teams Clam Sorter Relationship Specialty Start Date End Date Juliette Madden MD [address] [place] [address] PCP - General Family Medicine 12/22/24
--- OUTSIDE RECORDS SUMMARY | 2025-08-17 11:30 | XMS_ITS | Encounter Summary ---
Author Organization [facility] Address [address] [place] [address] [place] [address] Care Team Providers Care Garment Inspector Name Role Phone Tony Azevedo [facility] Primary Care Provider Shaniqua Lee [employer] Primary Care Provider [phone] Hermilo Batista MD Primary Care Provider [phone] Arturo Cevallos [facility] Primary Care Provider [phone] Juliette Madden MD Primary Care Provider [phone] Encounter Details Date Type Department Care Team (Late st Contact Info) Description 12/14/2022 Orders Only [facility] [address] [place], [place] [phone] Josefina Moreland RN Social History Tobacco Use Types Packs/Day Years Used Date Smoking Tobacco: Never Assessed Comments Unknown Sex and Gender Information Value Date Recorded Sex Assigned at Female 09/17/2022 10:15 AM EDT Legal Sex Female 10:15 AM EDT Gender Identity Female 09/17/2022 10:15 AM EDT Sexual Orientation Straight 09/17/2022 10 :15 AM EDT documented as of this encounter Plan of Treatment Upcoming Encounters Date Type Department Care Team (Late st Contact Info) Description 02/02/2026 3:30 PM EDT Office Visit [facility] [address] [place], [place] [phone] Brinda Hale, OD [address] [place], [place] [phone] documented as of this encounter Visit Diagnoses Not on filedocumented in this encounter Care Teams Garment Inspector Relationship Specialty Start Date End Date Tony Azevedo FNP PCP - General Family Medicine 10/25/22 01/16/23 Shaniqua Gutierrez FNP [address] [place] [address] PCP - General Family Medicine 01/17/23 07/20/24 Hermilo Batista MD [address] [place] [address] PCP - General Internal Medicine 07/21/24 12/10/24 Arturo Cevallos CNP [address] [place] [address] PCP - General Family Medicine 12/11/24 12/21/24 Juliette Madden MD [address] [place] [address] PCP - General Family Medicine 12/22/24 documented as of this encounter
--- OUTSIDE RECORDS SUMMARY | 2025-08-17 11:30 | XMS_ITS | Encounter Summary ---
Author Organization [employer] Address [address] [facility] 7t [place] [address] Care Team Providers Care Derrick Builder Name Role Phone Shaniqua Gutierrez Primary Care Provider [phone] Hermilo Batista MD Primary Care Provider Arturo Cevallos CNP Primary Care Provider [phone] Juliette Madden MD Primary Care Provider [phone] Reason for Visit * Reason Comments Med Refill Encounter Details Date Type Department Care Team (Late st Contact Info) Description 05/25/2024 Refill [facility] [address] [place], [place] [phone] Shaniqua Gutierrez FNP [address] [place], [place] [phone] Pruritic rash Social History Tobacco Use Types [...] Description 02/02/2026 3:30 PM EDT Office Visit [facility] [address] [place], [place] [address] Geoffrey, Brinda, OD [address] [place] [address] documented as of this encounter Visit Diagnoses Diagnosis Pruritic rash documented in this encounter Additional Health Concerns Assessment Noted Time PHQ-9 Depression Total Score: 2 01/26/20 23 10:19 AM EST documented as of this encounter Care Teams Derrick Builder Relationship Specialty Start Date End Date Shaniqua Gutierrez FNP [address] [place] [address] PCP - General Family Medicine 01/17/23 07/20/24 Hermilo Batista MD [address] [place] [address] PCP - General Internal Medicine 07/21/24 12/10/24 Arturo Cevallos CNP [address] [place] [address] PCP - General Family Medicine 12/11/24 12/21/24 Juliette Madden MD [address] [place] [address] PCP - General Family Medicine 12/22/24 documented as of this encounter
--- OUTSIDE RECORDS SUMMARY | 2025-08-17 11:30 | XMS_ITS | Encounter Summary ---
Author Organization [employer] [facility] Address [address] [place] [address] [address] [place] [address] Care Team Providers Care Crane Mechanic Name Role Phone Tony Azevedo Primary Care Provider Shaniqua Lee Primary Care Provider [phone] Hermilo Batista MD Primary Care Provider [phone] Arturo Cevallos CNP Primary Care Provider [phone] Juliette Madden MD Primary Care Provider [phone] Encounter Details Date Type Department Care Team (Late st Contact Info) Description 12/13/2022 Telephone [facility] [address] [place], [place] [phone] Tony Azevedo FNP Social History Tobacco Use [...] Description 02/02/2026 3:30 PM EDT Office Visit [facility] [address] [place], [place] [phone] Brinda Hale, OD [address] [place] [address] documented as of this encounter Visit Diagnoses Not on filedocumented in this encounter Care Teams Crane Mechanic Relationship Specialty Start Date End Date Tony Azevedo FNP PCP - General Family Medicine 10/25/22 01/16/23 Shaniqua Gutierrez FNP [address] [place] [address] PCP - General Family Medicine 01/17/23 07/20/24 Hermilo Batista MD [address] [place] [address] PCP - General Internal Medicine 07/21/24 12/10/24 Arturo Cevallos CNP [address] [place] [address] PCP - General Family Medicine 12/11/24 12/21/24 Juliette Madden MD [address] [place] [address] PCP - General Family Medicine 12/22/24 documented as of this encounter
--- OUTSIDE RECORDS SUMMARY | 2025-08-17 11:31 | XMS_ITS | Encounter Summary ---
Author Organization [employer] Address [address] [facility] 7 [place] [address] Care Team Providers Care Wet Process Miller Head Name Role Phone Juliette Madden MD Primary Care Provider [phone] Reason for Visit * Reason Onset Date Comments chart prep 08/16/2025 Encounter Details Date Type Department Care Team ([facility] st Contact Info) Description 08/16/2025 Telephone [facility] [address] [place] [address] Juliette Madden MD [address] [place] [address] chart prep Social History Tobacco Use Types Packs/Day Years [...] your housing situation today? I have chema scooter 08/17/[address] you li [...] Access Q2 Not on file 08/17/2025 Comments Unknown Sex and Gender Information Value Date Recorded Sex Assigned at Female 09/17/2022 10:15 AM EDT Legal Sex Female 10:15 AM EDT Gender Identity Female 09/17/2022 10:15 AM EDT Sexual Orientation Straight 09/17/2022 10 :15 AM EDT documented as of this encounter Miscellaneous Notes * Telephone Encounter - Gaby Olmstead [place] - 08/16/2025 10:15 AM EDT Chart Prep Labs: not applicable Images: not applicable Referrals: not applicable Vaccines due: Covid, Flu, and PCV20 Screenings: colonoscopy, mammogram, and LMP Overdue care gaps: SBIRT, SDOH, PHQ-9, NATALIO-7, and Disability screen documented in this encounter Plan of Treatment Upcoming Encounters Date Type Department Care Team (Late st Contact Info) Description 02/02/2026 3:30 PM EDT Office Visit [facility] [address] [place] [address] Geoffrey, Brinda, OD [address] [place] [address] documented as of this encounter Visit Diagnoses Not on filedocumented in this encounter Additional Health Concerns Assessment Noted Time PHQ-9 Depression Total Score: 2 01/26/20 23 10:19 AM EST documented as of this encounter Care Teams Wet Process Miller Head Relationship Specialty Start Date End Date Juliette Madden MD [address] [place] [address] PCP - General Family Medicine 12/22/24 documented as of this encounter
--- OUTSIDE RECORDS SUMMARY | 2025-08-17 11:31 | XMS_ITS | Encounter Summary ---
Author Organization [employer] Address [address] [place] [address] [address] [place] [address] Care Team Providers Care Specification Writer Name Role Phone Shaniqua Gutierrez Primary Care Provider [phone] Hermilo Batista MD Primary Care Provider [phone] Arturo Cevallos CNP Primary Care Provider [phone] Juliette Madden MD Primary Care Provider [phone] Reason for Visit * Reason Onset Date Comments triage 03/05/2023 Encounter Details Date Type Department Care Team (Late st Contact Info) Description 03/05/2023 Telephone [facility] MED[facility] [address] [place], [place] [phone] Shaniqua Gutierrez FNP [address] [place] [address] triage Social History Tobacco Use Types Packs/Day [...] in the morning. [facility] that medication not refilled.Pt states irritable without medication. Pt advised do see both electronic refill request and message sent as well. Will send to team to review with a covering since PCP not in office today to see if Rx can be sent in to pt tonight. Reviewed [facility] operating hours should sx of anxiety worsen. Pt agrees. Also sent [employer] chat message to team nurses to notify [...] Description 02/02/2026 3:30 PM EDT Office Visit [facility] OPT[facility] [address] [place] [address] Brinda Hale, OD [address] [place] [address] documented as of this encounter Visit Diagnoses Not on filedocumented in this encounter Additional Health Concerns Assessment Noted Time PHQ-9 Depression Total Score: 2 01/26/20 23 10:19 AM EST documented as of this encounter Care Teams Specification Writer Relationship Specialty Start Date End Date Shaniqua Gutierrez FNP [address] [place] [address] PCP - General Family Medicine 01/17/23 07/20/24 Hermilo Batista MD [address] [place] [phone] PCP - General Internal Medicine 07/21/24 12/10/24 Arturo Cevallos CNP [address] [place] [phone] PCP - General Family Medicine 12/11/24 12/21/24 Juliette Madden MD [address] [place] [phone] PCP - General Family Medicine 12/22/24 documented as of this encounter
--- OUTSIDE RECORDS SUMMARY | 2025-08-17 11:31 | XMS_ITS | Encounter Summary ---
Author Organization [employer] Address [address] [facility] 7t [place] [address] Care Team Providers Care Rn Orthopedic Name Role Phone Juliette Madden MD Primary Care Provider [phone] Encounter Details Date Type Department Care Team (Latest Contact Info) Description 08/17/2025 Travel Social History Tobacco Use Types Packs/Day Years [...] Q2 Not on file 08/17/2025 Comments No Sex and Gender Information Value Date Recorded Sex Assigned at Female 09/17/2022 10:15 AM EDT Legal Sex Female 10:15 AM EDT Gender Identity Female 09/17/2022 10:15 AM EDT Sexual Orientation Straight 09/17/2022 10 :15 AM EDT documented as of this encounter Functional Status * Over the [...] Not at all 08/17/2025 9:54 AM EDT Gaby Ellis MA * Thoughts that you would be better off or hurting yourself in some way Answer Date of Assessment Author Not at all 08/17/2025 9:54 AM EDT Gaby Garrison MA * Patient Health Questionnaire-9 Score Answer Date of Assessment Author 2 08/17/2025 9:54 AM EDT Gaby Ellis MA * How difficult have these problems [...] Olmstead [place] documented as of this encounter Plan of Treatment Upcoming Encounters Date Type Department Care Team (Late st Contact Info) Description 02/02/2026 3:30 PM EDT Office Visit [facility] OPT[facility] [address] [place] [address] Brinda Hale, OD [address] [place] [address] documented as of this encounter Visit Diagnoses Not on filedocumented in this encounter Additional Health Concerns Assessment Noted Time PHQ-9 Depression Total Score: 2 08/17/20 25 9:54 AM EDT documented as of this encounter Care Teams Rn Orthopedic Relationship Specialty Start Date End Date Juliette Madden MD [address] [place] [address] PCP - General Family Medicine 12/22/24 documented as of this encounter
--- OUTSIDE RECORDS SUMMARY | 2025-08-17 11:31 | XMS_ITS | Encounter Summary ---
Author Organization [facility] Address [address] [place] [address] [address] [place] [address] Care Team Providers Care Day Haul Or Farm Charter Bus Driver Name Role Phone Tony Azevedo Primary Care Provider Shaniqua Lee Primary Care Provider [phone] Hermilo Batista MD Primary Care Provider [phone] Arturo Cevallos CNP Primary Care Provider [phone] Juliette Madden MD Primary Care Provider [phone] Encounter Details Date Type Department Care Team (Late st Contact Info) Description 10/23/2022 Orders Only [facility] [address] [place], [place] [phone] Tony Azevedo FNP Social History Tobacco Use [...] Description 02/02/2026 3:30 PM EDT Office Visit [facility] [address] [place] [address] GeoffreyBrinda bueno, OD [address] [place] [address] documented as of this encounter Visit Diagnoses Not on filedocumented in this encounter Care Teams Day [employer] Charter Bus Driver Relationship Specialty Start Date End Date Tony Azevedo FNP PCP - General Family Medicine 10/25/22 01/16/23 Shaniqua Gutierrez FNP [address] [place] [address] PCP - General Family Medicine 01/17/23 07/20/24 Hermilo Batista MD [address] [place] [address] PCP - General Internal Medicine 07/21/24 12/10/24 Arturo Cevallos CNP [address] [place] [address] PCP - General Family Medicine 12/11/24 12/21/24 Juliette Madden MD [address] [place] [address] PCP - General Family Medicine 12/22/24 documented as of this encounter
--- OUTSIDE RECORDS SUMMARY | 2025-08-17 11:31 | XMS_ITS | Encounter Summary ---
Author Organization [employer] Address [address] [place] [address] [address] [place] [address] Care Team Providers Care Client Support Associate Name Role Phone Shaniqua Gutierrez Primary Care Provider [phone] Hermilo Batista MD Primary Care Provider [phone] Arturo Cevallos HYDRAULIC LIFT DRIVER Primary Care Provider [phone] Juliette Madden MD Primary Care Provider Reason for Visit * Reason Onset Date Comments Nurse Triage 12/10/2023 Encounter Details Date Type Department Care Team (Late st Contact Info) Description 12/10/2023 Telephone [facility] MED[facility]INE [address] [place], [place] [phone] Shaniqua Gutierrez FNP [address] [place], [place] [phone] Nurse Triage Social History Tobacco Use Types [...] . Pt is advised to come to [facility] today or tomorrow. Hours given open till [...] accepted this outcome Please contact pt @ [phone] or [phone] documented in this encounter Plan of Treatment Upcoming Encounters Date Type Department Care Team (Late st Contact Info) Description 02/02/2026 3:30 PM EDT Office Visit [facility] [address] [place] [address] Brinda Hale, OD [address] [place] [address] documented as of this encounter Visit Diagnoses Not on filedocumented in this encounter Additional Health Concerns Assessment Noted Time PHQ-9 Depression Total Score: 2 01/26/20 23 10:19 AM EST documented as of this encounter Care Teams Client Support Associate Relationship Specialty Start Date End Date Shaniqua Gutierrez FNP [address] [place] [address] PCP - General Family Medicine 01/17/23 07/20/24 Hermilo Batista MD [address] [place] [address] PCP - General Internal Medicine 07/21/24 12/10/24 Arturo Cevallos CNP [address] [place] [address] PCP - General Family Medicine 12/11/24 12/21/24 Juliette Madden MD [address] [place] [address] PCP - General Family Medicine 12/22/24 documented as of this encounter
[2025-08-17 14:14] LABS: MANUAL DIFF FLAG NO
[2025-08-17 14:18] LABS: Hematocrit 40.0 % (37.0-47.0); Hemoglobin 12.7 g/dl (12.0-16.0); Imm Gran Abs Auto 0.04 X10*3/uL (0.00-0.03); Imm Gran Pct Auto 0.4 % (0.0-0.4); Lymphocytes Absolute Auto 2.3 X10*3/uL (1.2-4.9); Mean Corpuscular HGB Conc 31.8 g/dl (31.0-35.0); Mean Corpuscular Hemoglobin 29.5 pg (27.0-33.0); Mean Corpuscular Volume 93.0 fL (80.0-98.0); NRBC Abs Auto 0.000 X10*3/uL (0.0-0.012); NRBC Pct Auto 0.0 /100WBC (0.0-0.2); Platelet Count 361 X10*3/uL (160-400); Red Blood Count 4.30 X10*6/uL (4.20-5.50); White Blood Count 9.1 X10*3/uL (4.8-10.8)
[2025-08-17 16:30] LABS: Iron 135 mcg/dL (30-160); Percent Iron Saturation 45 % (15-50); Total Iron Binding Capacity 301 mcg/dL (228-428); Unsaturated Iron Binding 166 ug/dL
[2025-08-17 16:45] LABS: Ferritin 50 ng/mL (10-250)
== END 2025-08-17 10:22 | disposition home or self-care (01) ==
LOC: HO.CHCLDS 10:21
DX: Z00.00 Encounter for general adult medical examination without abnormal findings (principal)
CPT/HCPCS: 36415; 82306; 82728; 83540; 84443; 84480; 85025

== ENCOUNTER 2025-09-29 15:39 | Outpatient (REF) | payer MEDICAID, SELFPAY ==
--- NOTE | ~2025-09-29 | US_ITS ---
EXAMINATION: US THYROID CLINICAL INFORMATION: Reason for Exam-hx of thyroid nodules. COMPARISON: Ultrasound on May 16, 2021 TECHNIQUE: Linear transducer cabrera-scale and color Doppler examination with attention to the region of the thyroid. FINDINGS: SIZE: Measurements of the thyroid lobes and nodules are given in sagittal, anteroposterior and transverse dimensions respectively. Right Thyroid Lobe: 5.4 x 2.0 x 1.9 cm, volume 10.9 mL. Parenchyma: The gland echotexture is homogeneous. Thyroid vascularity is normal. Left Thyroid Lobe: 5.1 x 1.6 x 1.6 cm, volume 6.9 mL. Parenchyma: The gland echotexture is homogeneous. Thyroid vascularity is normal. Isthmus: 0.4 cm in maximum AP dimension. Estimated total number of nodules greater than or equal to 1 cm: 0. Fuel Quality Tech nodules are described as follows: 1. Location: Right upper. Size: 0.5 x 0.3 x 0.4 cm, volume 0.04 mL. Nodule characteristics: Composition: Solid (2). Echogenicity: Hypoechoic (2). Shape: Not taller than wide (0). Margins: Smooth (0). Echogenic Foci: None (0). ACR TI-RADS total points: 4 ACR TI-RADS category: 4 2. Note that the previously seen isthmus nodules are not seen on today's examination. NODES: No lymphadenopathy is seen in the tissue surrounding the thyroid gland. Targeted ultrasound was also performed at the location of the palpable concern in the right subclavian area. No focal lesions seen. US/US soft tiss head and/or neck IMPRESSION: Right thyroid nodule as above. No fine-needle aspiration or dedicated imaging follow-up required in accordance with TI-RADS. ACR TI-RADS RECOMMENDATION REFERENCE: Ultrasound-guided fine-needle aspiration, followup ultrasound, no further follow up. * TR1 (0 point) and TR2 (2 points): No FNA or follow up. * TR3 (3 points): FNA if more than or equal to 2.5 cm in maximum dimension, followup ultrasound in 1, 3 and 5 years if 1.5 to 2.4 cm in maximum dimension. * TR4 (4-6 points): FNA if more than or equal to 1.5 cm in maximum dimension, followup ultrasound in 1, 2, 3 and 5 years if 1 to 1.4 cm in maximum dimension. * TR5 (more than or equal to 7 points): FNA if more than or equal to 1 cm in maximum dimension, followup ultrasound every year for 5 years if 0.5 to 0.9 cm in maximum dimension. * TR3, TR4 or TR5 nodules that are below the size threshold for followup receive no follow up. Electronically signed by: Brenda Don MD 09/29/2025 05:52 PM RAVI
--- OUTSIDE RECORDS SUMMARY | 2025-09-29 18:43 | XMS_ITS | Encounter Summary ---
Author Organization [employer] [facility] Address [address] [place] [address] [address] [place] [address] Care Team Providers Care Automotive Detailer Name Role Phone Tony Azevedo Primary Care Provider Shaniqua Lee Primary Care Provider [phone] Hermilo Batista MD Primary Care Provider [phone] Arturo Cevallos CNP Primary Care Provider [phone] Juliette Madden MD Primary Care Provider [phone] Encounter Details Date Type Department Care Team (Late st Contact Info) Description 10/23/2022 Orders Only [facility] MEDICINE [address] [place], [place] [phone] Tony Azevedo FNP Social History Tobacco Use [...] Description 02/02/2026 3:30 PM EDT Office Visit [facility] OPT[facility] [address] [place] [address] Brinda Hale, OD [address] [place] [address] documented as of this encounter Visit Diagnoses Not on filedocumented in this encounter Care Teams Automotive Detailer Relationship Specialty Start Date End Date Tony Azevedo FNP PCP - General Family Medicine 10/25/22 01/16/23 Shaniqua Gutierrez FNP [address] [place] [address] PCP - General Family Medicine 01/17/23 07/20/24 Hermilo Batista MD [address] [place] [address] PCP - General Internal Medicine 07/21/24 12/10/24 Arturo Cevallos CNP [address] [place] [address] PCP - General Family Medicine 12/11/24 12/21/24 Juliette Madden MD [address] [place] [address] PCP - General Family Medicine 12/22/24 documented as of this encounter
--- OUTSIDE RECORDS SUMMARY | 2025-09-29 18:43 | XMS_ITS | Encounter Summary ---
Author Organization [employer] [facility] Address [address] [place] [address] [address] [place] [address] Care Team Providers Care Consumer Education Specialist Name Role Phone Tony Azevedo [facility] Primary Care Provider Shaniqua Lee WOOD BOX MAKER Primary Care Provider [phone] Hermilo Batista MD Primary Care Provider [phone] Arturo Cevallos [facility] Primary Care Provider [phone] Juliette Madden MD Primary Care Provider [phone] Encounter Details Date Type Department Care Team (Late st Contact Info) Description 12/14/2022 Orders Only [facility] MEDICINE [address] [place], [place] [phone] Josefina Moreland RN Social History Tobacco Use [...] 3:30 PM EDT Office Visit [facility] OPTOMET[facility] [address] [place], [place] [phone] Brinda Hale, OD [address] [place], [place] [phone] documented as of this encounter Visit Diagnoses Not on filedocumented in this encounter Care Teams Consumer Education Specialist Relationship Specialty Start Date End Date Tony Azevedo FNP PCP - General Family Medicine 10/25/22 01/16/23 Shaniqua Gutierrez FNP [address] [place] [address] PCP - General Family Medicine 01/17/23 07/20/24 Hermilo Batista MD [address] [place] [address] PCP - General Internal Medicine 07/21/24 12/10/24 Arturo Cevallos CNP [address] [place] [address] PCP - General Family Medicine 12/11/24 12/21/24 Juliette Madden MD [address] [place] [address] PCP - General Family Medicine 12/22/24 documented as of this encounter
--- OUTSIDE RECORDS SUMMARY | 2025-09-29 18:43 | XMS_ITS | Encounter Summary ---
Author Organization [employer] Address [address] [place] [address] [address] [place] [address] Care Team Providers Care Environmental Compliance Inspector Name Role Phone Shaniqua Gutierrez Primary Care Provider [phone] Hermilo Batista MD Primary Care Provider [phone] Arturo Cevallos DIE MAKER STAMPING Primary Care Provider [phone] Juliette Madden MD Primary Care Provider [phone] Reason for Visit * Reason Onset Date Comments Nurse Triage 12/10/2023 Encounter Details Date Type Department Care Team (Late st Contact Info) Description 12/10/2023 Telephone [facility] [address] [place], [place] [phone] Shaniqua Gutierrez FNP [address] [place], [place] [phone] Nurse Triage Social History Tobacco Use Types [...] . Pt is advised to come to [facility] today or tomorrow. Hours given [...] accepted this outcome Please contact pt @ [phone] or [phone] documented in this encounter Plan of Treatment Upcoming Encounters Date Type Department Care Team (Late st Contact Info) Description 02/02/2026 3:30 PM EDT Office Visit [facility] OPTOMETRY [address] [place] [address] Brinda Hale, OD [address] [place] [address] documented as of this encounter Visit Diagnoses Not on filedocumented in this encounter Additional Health Concerns Assessment Noted Time PHQ-9 Depression Total Score: 2 01/26/20 23 10:19 AM EST documented as of this encounter Care Teams Environmental Compliance Inspector Relationship Specialty Start Date End Date Shaniqua Gutierrez FNP [address] [place] [address] PCP - General Family Medicine 01/17/23 07/20/24 Hermilo Batista MD [address] [place] [address] PCP - General Internal Medicine 07/21/24 12/10/24 Arturo Cevallos CNP [address] [place] [address] PCP - General Family Medicine 12/11/24 12/21/24 Juliette Madden MD [address] [place] [address] PCP - General Family Medicine 12/22/24 documented as of this encounter
--- OUTSIDE RECORDS SUMMARY | 2025-09-29 18:43 | XMS_ITS | Encounter Summary ---
Author Organization [employer] Address [address] [place] [address] [address] [place] [address] Care Team Providers Care Wet End Supervisor Name Role Phone Shaniqua Gutierrez Primary Care Provider [phone] Hermilo Batista MD Primary Care Provider [phone] Arturo Cevallos CNP Primary Care Provider [phone] Juliette Madden MD Primary Care Provider [phone] Reason for Visit * Reason Onset Date Comments triage 03/05/2023 Encounter Details Date Type Department Care Team (Late st Contact Info) Description 03/05/2023 Telephone [facility] MEDICINE [address] [place], [place] [phone] Shaniqua Gutierrez FNP [address] [place] [address] triage Social History Tobacco Use Types Packs/Day [...] in the morning. Per pt [facility] but that medication not refilled.Pt states irritable without medication. Pt advised do see both electronic refill request and message sent as well. Will send to team to review with a covering since PCP not in office today to see if Rx can be sent in to pt tonight. Reviewed [facility] operating hours should sx of anxiety worsen. Pt agrees. Also sent [employer] chat message to team nurses to notify [...] Description 02/02/2026 3:30 PM EDT Office Visit [facility] OPTOM[facility] [address] [place] [address] Brinda Hale, OD [address] [place] [address] documented as of this encounter Visit Diagnoses Not on filedocumented in this encounter Additional Health Concerns Assessment Noted Time PHQ-9 Depression Total Score: 2 01/26/20 23 10:19 AM EST documented as of this encounter Care Teams Wet End Supervisor Relationship Specialty Start Date End Date Shaniqua Gutierrez FNP [address] [place] [address] PCP - General Family Medicine 01/17/23 07/20/24 Hermilo Batista MD [address] [place] [phone] PCP - General Internal Medicine 07/21/24 12/10/24 Arturo Cevallos CNP [address] [place] [id number] PCP - General Family Medicine 12/11/24 12/21/24 Juliette Madden MD [address] [place] [id number] PCP - General Family Medicine 12/22/24 documented as of this encounter
--- OUTSIDE RECORDS SUMMARY | 2025-09-29 18:43 | XMS_ITS | Clinical Summary ---
Author Organization [employer] Address [address] [facility] [address] [place] [address] Care Team Providers Care Field Naturalist Name Role Phone Juliette Madden MD Primary Care Provider [phone] Allergies No known active allergies Medications omeprazole (PriLOSEC) [address] capsule Take 1 capsule by mouth at bed time. 10/18/2020 Active buPROPion XL (Wellbutrin XL) 300 MG 24 hr tablet Take 300 mg by mouth in the morning. 01/15/2024 Active mirtazapine (Remeron) 15 MG tablet Take 15 mg by mouth at bedtime. 01/15/2024 Active cloNIDine (Catapres) 0.1 MG tablet Take 0.1 mg by mouth if needed at bedtime. 01/15/2024 Active acetaminophen (Tylenol 8 Hour) 650 MG ER tablet TAKE 1 TABLET BY MOUTH EVERY 8 HOURS NEEDED FOR MILD PAIN DO NOT BREAK, CRUSH, DISSOLVE OR CHEW 40 tablet 1 08/03/2024 Active baclofen (Lioresal) 10 MG tabletIndicatio ns:Chronic right shoulder pain Take one tablet TID PRN 30 tablet 12/03/2024 Active ibuprofen 600 MG tabletIndicatio ns:Chronic right shoulder pain TAKE 1 TABLET BY MOUTH EVERY 6 HOURS 120 tablet 1 02/01/2025 Active fluticasone (Flonase) 50 MCG/ACT nasal spray USE 2 SPRAYS IN EACH NOSTRIL ONCE DAILY 48 g 04/02/2025 Active ARIPiprazole (Abilify) 2 MG tablet Take 1 tablet by mouth Once per day. 08/06/2025 Active ergocalciferol (Vitamin D2) 1.25 MG (16158 UT) capsule Take 1 capsule by mouth every 7 (seven) days. 02/26/2025 Active traZODone (Desyrel) 50 MG tablet Take 50 mg by mouth at bedtime. 08/06/2025 Active lamoTRIgine (LaMICtal) 150 MG tablet Take 1 tablet by mouth Once per day. 08/06/2025 Active cholecalciferol (Vitamin D-3) 25 MCG (1000 UT) tablet Take 1 tablet (25 mcg) by mouth Once per day. 30 tablet 2 08/17/2025 11/15/20 25 Active Active Problems Problem Noted Date Diagnosed Date [...] Description 08/17/2025 9:45 AM EDT Office Visit [facility] [address] [place] [address] Arturo Cevallos CNP Encounter for physical examination (Primary Dx); Encounter for screening mammogram for breast cancer; Encounter for screening for malignant neoplasm of colon; Multiple thyroid nodules; Tobacco use; Injury of head, sequela 08/17/2025 Travel 08/16/2025 Telephone [facility] [address] [place] [address] Juliette Madden MD chart prep 08/10/2025 Patient Outreach [facility] [address] [place] [address] Juliette Madden MD Pre-visit Planning ((Unable to reach for PVP screening, LVM) to be completed in office ) from Last 3 Months Immunizations Immunization [...] Description 02/02/2026 3:30 PM EDT Office Visit [facility] [address] [place] [address] Geoffrey, Brinda, OD [address] [place] [address] Health Maintenance Due Date Last Done Comments [...] Alcohol/Substance Use Screening 08/17/2026 08/17/2025 COVID-19 Vaccine (2024-2 6 season) 2026 08/02/2021, 07/12/2021 Postponed from [...] Procedure Name Priority Date/Time Associated Diagnosis Comments US HEAD NECK SOFT TISSUE Routine 09/29/2025 3:51 PM EST Multiple thyroid nodules TSH W/REFLEX TO FT4 Routine 08/17/2025 1 0:22 AM EDT Encounter for physical examination VITAMIN D,25-OH,TOTAL,IA Routine 08/17/2025 10:22 AM EDT Encounter for physical examination FERRITIN Routine 08/17/2025 10:22 AM EDT Encounter for physical examination IRON AND TOTAL IRON BINDING CAPACITY Routine 08/17/2025 10:22 AM EDT Encounter for physical examination CBC WITH AUTO DIFFERENTIAL Routine 08/17/2025 10:22 AM EDT Encounter for physical examination BITEWING - SINGLE RADIOGRAPHIC IMAGE Routine 06/27/2023 [...] Recently Relevant to Health Maintenance Results * US Head Neck Soft Tissue (09/29/2025 3:51 PM EST) Anatomical Region Laterality Modality Head, Neck Ultrasound 09/29/2025 3:51 PM EST Narrative 09/29/2025 5:56 PM EST [address] [address] Ultrasound Report Signed Patient: Martina Araiza MR#: [id number] : 1980 Acct:[id number] Age/Sex: 45 / F ADM Date: 09/29/25 Loc: HO.US Attending Dr: Arturo Cevallos NP Ordering Physician: Arturo Cevallos NP Date of Service: 09/29/25 Procedure(s): US soft tiss head and/or neck Accession Number(s): [id number] cc: Arturo Cevallos NP Reason for Exam: hx of thyroid nodules EXAMINATION: US THYROID CLINICAL INFORMATION: Reason for Exam-hx of thyroid nodules. COMPARISON: Ultrasound on May 16, 2021 TECHNIQUE: Linear transducer cabrera-scale and color Doppler examination with attention to the region of the thyroid. FINDINGS: SIZE: Measurements of the thyroid lobes and nodules are given in sagittal, anteroposterior and transverse dimensions respectively. Right Thyroid Lobe: 5.4 x 2.0 x 1.9 cm, volume 10.9 mL. Parenchyma: The gland echotexture is homogeneous. Thyroid vascularity is normal. Left Thyroid Lobe: 5.1 x 1.6 x 1.6 cm, volume 6.9 mL. Parenchyma: The gland echotexture is homogeneous. Thyroid vascularity is normal. Isthmus: 0.4 cm in maximum AP dimension. Estimated total number of nodules greater than or equal to 1 cm: 0. Real Estate Legal Secretary nodules are described as follows: 1. Location: Right upper. Size: 0.5 x 0.3 x 0.4 cm, volume 0.04 mL. Nodule characteristics: Composition: Solid (2). Echogenicity: Hypoechoic (2). Shape: Not taller than wide (0). Margins: Smooth (0). Echogenic Foci: None (0). ACR TI-RADS total points: 4 ACR TI-RADS category: 4 2. Note that the previously seen isthmus nodules are not seen on today's examination. NODES: No lymphadenopathy is seen in the tissue surrounding the thyroid gland. Targeted ultrasound was also performed at the location of the palpable concern in the right subclavian area. No focal lesions seen. US/US soft tiss head and/or neck IMPRESSION: Right thyroid nodule as above. No fine-needle aspiration or dedicated imaging follow-up required in accordance with TI-RADS. ACR TI-RADS RECOMMENDATION REFERENCE: Ultrasound-guided fine-needle aspiration, followup ultrasound, no further follow up. * TR1 (0 point) and TR2 (2 points): No FNA or follow up. * TR3 (3 points): FNA if more than or equal to 2.5 cm in maximum dimension, followup ultrasound in 1, 3 and 5 years if 1.5 to 2.4 cm in maximum dimension. * TR4 (4-6 points): FNA if more than or equal to 1.5 cm in maximum dimension, followup ultrasound in 1, 2, 3 and 5 years if 1 to 1.4 cm in maximum dimension. * TR5 (more than or equal to 7 points): FNA if more than or equal to 1 cm in maximum dimension, followup ultrasound every year for 5 years if 0.5 to 0.9 cm in maximum dimension. * TR3, TR4 or TR5 nodules that are below the size threshold for followup receive no follow up. Electronically signed by: Brenda Don MD 09/29/2025 05:52 PM [facility] Dictated By: Brenda Don MD Signed By: <Electronically signed by Brenda Don MD in OV> 09/29/25 1752 DD/ 1551 TD/TT: 09/29/25 1603 Homogenizer Operator: Procedure Note Donotuseinterpreter, Image - 09/29/[address] [address] Ultrasound Report Signed Patient: Martina AraizaMR#: [id number] : 1980Acct:[id number] Age/Sex: 45 / FADM Date: 09/29/25 Loc: HO.US Attending Dr: Arturo Cevallos NP Ordering Physician: Arturo Cevallos NP Date of Service: 09/29/25 Procedure(s): US soft tiss head and/or neck Accession Number(s): [id number] cc: Arturo Cevallos NP Reason for Exam: hx of thyroid nodules EXAMINATION: US THYROID CLINICAL INFORMATION: Reason for Exam-hx of thyroid nodules. COMPARISON: Ultrasound on May 16, 2021 TECHNIQUE: Linear transducer cabrera-scale and color Doppler examination with attention to the region of the thyroid. FINDINGS: SIZE: Measurements of the thyroid lobes and nodules are given in sagittal, anteroposterior and transverse dimensions respectively. Right Thyroid Lobe: 5.4 x 2.0 x 1.9 cm, volume 10.9 mL. Parenchyma: The gland echotexture is homogeneous. Thyroid vascularity is normal. Left Thyroid Lobe: 5.1 x 1.6 x 1.6 cm, volume 6.9 mL. Parenchyma: The gland echotexture is homogeneous. Thyroid vascularity is normal. Isthmus: 0.4 cm in maximum AP dimension. Estimated total number of nodules greater than or equal to 1 cm: 0. Real Estate Legal Secretary nodules are described as follows: 1. Location: Right upper. Size: 0.5 x 0.3 x 0.4 cm, volume 0.04 mL. Nodule characteristics: Composition: Solid (2). Echogenicity: Hypoechoic (2). Shape: Not taller than wide (0). Margins: Smooth (0). Echogenic Foci: None (0). ACR TI-RADS total points: 4 ACR TI-RADS category: 4 2. Note that the previously seen isthmus nodules are not seen on today's examination. NODES: No lymphadenopathy is seen in the tissue surrounding the thyroid gland. Targeted ultrasound was also performed at the location of the palpable concern in the right subclavian area. No focal lesions seen. US/US soft tiss head and/or neck IMPRESSION: Right thyroid nodule as above. No fine-needle aspiration or dedicated imaging follow-up required in accordance with TI-RADS. ACR TI-RADS RECOMMENDATION REFERENCE: Ultrasound-guided fine-needle aspiration, followup ultrasound, no further follow up. * TR1 (0 point) and TR2 (2 points): No FNA or follow up. * TR3 (3 points): FNA if more than or equal to 2.5 cm in maximum dimension, followup ultrasound in 1, 3 and 5 years if 1.5 to 2.4 cm in maximum dimension. * TR4 (4-6 points): FNA if more than or equal to 1.5 cm in maximum dimension, followup ultrasound in 1, 2, 3 and 5 years if 1 to 1.4 cm in maximum dimension. * TR5 (more than or equal to 7 points): FNA if more than or equal to 1 cm in maximum dimension, followup ultrasound every year for 5 years if 0.5 to 0.9 cm in maximum dimension. * TR3, TR4 or TR5 nodules that are below the size threshold for followup receive no follow up. Electronically signed by: Brenda Don MD 09/29/2025 05:52 PM EST Dictated By: Brenda Don MD Signed By: <Electronically signed by Brenda Don MD in OV> 09/29/25 1752 DD/ 1551 TD/TT: 09/29/25 1603 Homogenizer Operator[facility] IM US PROCEDURES Final R esult * Vitamin D, 25-Hydroxy, Total, Immunoassay (08/17/2025 10:22 AM EDT) Vitamin D 25-OH Total 38.7 >30 ng/mL [facility] Comment: Health Based Reference Values*< 20 ng/mL [id number] ng/mL Insufficient> 30 ng/mL Sufficient*Krystal FELIZ. N Engl J Med. 2007;357:266-280There is no well-established upper level of normal vitamin Dlevels. Some laboratories use 50 ng/mL as an upper limit ofnormal. However, toxicity is patient-dependent and may occurat any level. Careful correlation with the patient'spresentation is necessary and, if there is concern forvitamin D toxicity, treatment should be consideredirrespective of the serum level.Care must be taken in interpreting Vitamin D results fromdifferent laboratories and methodologies. Published datademonstrated that results from patients undergoinghemodialysis may show a negative bias when tested withvarious automated 25-OH vitamin D assays when compared toLC-MS/MS.When testing samples from patients whose predominant form ofVitamin D is Vitamin D2, such as patients receiving VitaminD2 supplementation, results that are subtherapeutic shouldbe confirmed with another method such as LC-MS/MS. Blood Venous blood specimen / Unknown 08/17/2025 10:22 AM EDT 08/17/2025 2:14 PM EDT [facility] LAB BLOOD ORDERABLES Mery l Result Performing Organization Address [facility] Co de Phone Number [facility] [address] [place] [phone] * TSH W/Reflex to FT4 (08/17/2025 10:22 AM EDT) Pathologist [facility] TSH reflex Free T4 0.40 0.32 - 4.0 uIU/mL [facility] Blood Venous blood specimen / Unknown 08/17/2025 10:22 AM EDT 08/17/2025 2:14 PM EDT [facility] LAB BLOOD ORDERABLES Mery l Result Performing Organization Address [facility] de Phone Number [facility] [address] [place] [phone] * (ABNORMAL) CBC auto differential (08/17/2025 10:22 AM EDT) Pathologist [facility] White Blood Count 9.1 4.8 - 10.8 X10*3/uL [facility] Red Blood Count 4.30 4.20 - 5.50 X10*6/uL [facility] Hemoglobin 12.7 12.0 - 16.0 g/dl [facility] Hematocrit 40.0 37.0 - 47.0 % [facility] Mean Corpuscular Volume 93.0 80.0 - 98.0 fL [facility] Mean Corpuscular Hemoglobin 29.5 27.0 - 33.0 pg [facility] Mean Corpuscular HGB Conc 31.8 31.0 - 35.0 g/dl [facility] Red Cell Distribution Width 12.6 11.0 - 16.0 % [facility] Platelet Count 361 160 - 400 X10*3/uL [facility] Mean Platelet Volume 10.2 9.4 - 12.3 fL [facility] Neutrophils Percent Auto 64.5 45 - 73 % [facility] Imm Gran Pct Auto 0.4 0.0 - 0.4 % [facility] Lymphocytes Percent Auto 25.4 20 - 40 % [facility] Monocytes Percent Auto 7.5 2 - 11 % [facility] Eosinophils Percent Auto 1.8 0 - 4 % [facility] Basophils Percent Auto 0.4 0 - 2 % [facility] NRBC Pct Auto 0.0 0.0 - 0.2 /100WBC [facility] Neutrophils Absolute Auto 5.9 2.0 - 8.3 x10*3/uL [facility] Imm Gran Abs Auto 0.04(H) 0.00 - 0.03 X10*3/uL [facility] Lymphocytes Absolute Auto 2.3 1.2 - 4.9 X10*3/uL [facility] Monocytes Absolute Auto 0.7 0.1 - 1.2 X10*3/uL [facility] Eosinophils Absolute Auto 0.2 0.0 - 0.4 X10*3/uL [facility] Basophils Absolute Auto 0.0 0.0 - 0.2 X10*3/uL [facility] NRBC Abs Auto 0.000 0.0 - 0.012 X10*3/uL [facility] Blood Venous blood specimen / Unknown 08/17/2025 10:22 AM EDT 08/17/2025 2:09 PM EDT Arturo Cevallos [employer] LAB BLOOD ORDERABLES Mery l Result [facility] [address] [place] [phone] [phone] * Iron And Total Iron Binding Capacity (08/17/2025 10:22 AM EDT) Iron 135 30 - 160 mcg/dL [facility] Total Iron Binding Capacity 301 228 - 428 mcg/dL [facility] Percent Iron Saturation 45 15 - 50 % [facility] Unsaturated Iron Binding 166 ug/dL [facility] Blood Venous blood specimen / Unknown 08/17/2025 10:22 AM EDT 08/17/2025 2:14 PM EDT [facility] [facility] LAB BLOOD ORDERABLES Mery l Result Performing Organization Address [facility]/ZIP Co de Phone Number [facility] [address] [place] [phone] * Ferritin (08/17/2025 10:22 AM EDT) Pathologist [facility] Ferritin 50 10 - 250 ng/mL [facility] Blood Venous blood specimen / Unknown 08/17/2025 10:22 AM EDT 08/17/2025 2:14 PM EDT [facility] LAB BLOOD ORDERABLES Mery l Result Performing Organization Address City/[facility] Co de Phone Number [facility] [address] [place] [phone] * Hepatitis C Antibody with Reflex to HCV, RNA, Quantitative, Real-Time PCR (10/22/2022 10:27 AM EST) Pathologist [facility] Hepatitis C Antibody NON-REACT JAMI NON-REACT JAMI [facility] [place] [employer] Index 0.16 <1.00 [facility] [place] [employer] Comment: HCV antibody was non-reactive. There is no laboratory evidence of HCV infection. In most cases, no further action is required. However, if recent HCV exposure is suspected, a test for HCV RNA (test code 19266) is suggested. For additional information please refer to http://education.Lumaqco/faq/YRY81m3 (This link is being provided for informational/ educational purposes only.) 10/22/2022 10:2 7 AM EST 10/22/2022 10:27 AM EST Narrative [facility] - 10/25/2022 4:23 PM EST FASTING:YES FASTING: YES Hermilo Batista MD LAB BLOOD ORDERABLES Final Resul t Performing Organization Address [facility] Phone Number [address], [place] [address] [email or web address] [address], [place] [address] * HIV-1/2 Antigen and Antibodies, Fourth Generation, with Reflexes (10/22/2022 10:27 AM EST) Pathologist [facility] HIV Antigen/Antibody, 4th Generation NON-REAC TIVE NON-REAC TIVE [email or web address] Comment: HIV-1 antigen and HIV-1/HIV-2 antibodies were [...] purpose. For additional information please refer to http://education.MINGDAO.COM.SwipeGood/faq/VED303 (This link is being provided for informational/ educational purposes only.) The performance of this assay has not been clinically validated in patients less than 2 years old. 10/22/2022 10:2 7 AM EST 10/22/2022 10:27 AM EST Narrative [facility] - 10/25/2022 4:23 PM EST FASTING:YES FASTING: YES us Hermilo Batista MD LAB BLOOD ORDERABLES Final Resul t Performing Organization Address [facility] Co de Phone Number [address], [place] [address] [facility] [place] [employer] [address], [place] [address] * (ABNORMAL) Lipid Panel, Standard (10/22/2022 10:27 AM EST) [facility] Signature Cholesterol, Total 187 <200 mg/dL [facility] [place] [email or web address] HDL Cholesterol 46(L) > OR = 50 mg/dL [facility] [place] [employer] Triglycerides 64 <150 mg/dL [facility] [place] [employer] LDL Cholesterol 125(H) mg/dL (calc) [facility] [place] [facility] [employer] Comment: Reference range: <100 Desirable range <100 mg/dL for primary prevention; <70 mg/dL for patients with CHD or diabetic patients with > or = 2 CHD risk factors. LDL-C is now calculated using the Tony calculation, which is a validated novel method providing better accuracy than the Friedewald equation in the estimation of LDL-C. Josh SS et al. ML. 2013;310(19): 8724-6571 (http://education.[facility]/faq/CMJ073) Chol/HDLC Ratio 4.1 <5.0 (calc) [facility] [place] [facility] [employer] Non-HDL Cholesterol 141(H) <130 mg/dL (calc) [facility] [place] [employer] Comment: For patients with diabetes plus 1 major ASCVD risk factor, treating to a non-HDL-C goal of <100 mg/dL (LDL-C of <70 mg/dL) is considered a therapeutic option. 10/22/2022 10:2 7 AM EST 10/22/2022 10:27 AM EST Narrative [facility] - 10/25/2022 4:23 PM EST FASTING:YES FASTING: YES us Hermilo Batista MD LAB BLOOD ORDERABLES Final Resul t [address], [place] [address] [facility] [address], [place] [address] * Hm Pap Smear (03/23/2021) Pap Negative for intraephithelial lesion or malignancy Negative for intraephithelial lesion or malignancy, Other HPV Undetected Undetected, Indeterminate, Quantitative, Not Detected Historical Provider HEALTH MAINTENANCE Final Result * OCCULT BLOOD STOOL (12/09/2019 12:00 AM EST) OCCULT BLOOD STOOL NEG NEG [facility] 12/09/2019 Rose Rod MD LAB BODY FLUIDS AND STOOLS O RDERABLES Final Result [facility] [address] from Last 3 Months or Most Recently Relevant to Health Maintenance Insurance [facility] C3 * Guarantor: Martina Araiza Account Type Relation to Patient Date of Phone Billing Address Dental Self [address] [place] [address] [facility] MEDICAID STAND ADULT * Guarantor: Martina Araiza Account Type Relation to Patient Date of Phone Billing Address Personal/Family Self [address] [place] Care Teams Field Naturalist Relationship Specialty Start Date End Date Juliette Madden MD [address] [place] [phone] PCP - General Family Medicine 12/22/24
--- OUTSIDE RECORDS SUMMARY | 2025-09-29 18:43 | XMS_ITS | Encounter Summary ---
Author Organization [employer] Address [address] [facility] [address] [place] [address] Care Team Providers Care Degreasing Solution Mixer Name Role Phone Shaniqua Gutierrez Primary Care Provider [phone] Hermilo Batista MD Primary Care Provider [phone] Arturo Cevallos CNP Primary Care Provider [phone] Juliette Madden MD Primary Care Provider [phone] Reason for Visit * Reason Comments Med Refill Encounter Details Date Type Department Care Team (Late st Contact Info) Description 05/25/2024 Refill [facility] [address] [place], [place] [phone] Shaniqua Gutierrez FNP [address] [place], [place] [phone] Pruritic rash Social History Tobacco Use Types [...] 3:30 PM EDT Office Visit [facility] [address] [place], [place] [phone] Geoffrey, Brinda, OD [address] [place] [address] documented as of this encounter Visit Diagnoses Diagnosis Pruritic rash documented in this encounter Additional Health Concerns Assessment Noted Time PHQ-9 Depression Total Score: 2 01/26/20 23 10:19 AM EST documented as of this encounter Care Teams Degreasing Solution Mixer Relationship Specialty Start Date End Date Shaniqua Gutierrez FNP [address] [place] [address] PCP - General Family Medicine 01/17/23 07/20/24 Hermilo Batista MD [address] [place] [address] PCP - General Internal Medicine 07/21/24 12/10/24 Arturo Cevallos CNP [address] [place] [address] PCP - General Family Medicine 12/11/24 12/21/24 Juliette Madden MD [address] [place] [phone] PCP - General Family Medicine 12/22/24 documented as of this encounter
--- OUTSIDE RECORDS SUMMARY | 2025-09-29 18:43 | XMS_ITS | Encounter Summary ---
Author Organization [employer] [facility] Address [address] [place] [address] [address] [place] [address] Care Team Providers Care Molecular Spectroscopist Name Role Phone Tony Azevedo Primary Care Provider Shaniqua Lee Primary Care Provider [phone] Hermilo Batista MD Primary Care Provider [phone] Arturo Cevallos CNP Primary Care Provider [phone] Juliette Madden MD Primary Care Provider [phone] Encounter Details Date Type Department Care Team (Late st Contact Info) Description 12/13/2022 Telephone [facility] [address] [place], [place] [phone] Tony Azevedo FNP Social History Tobacco Use [...] Description 02/02/2026 3:30 PM EDT Office Visit [facility] [address] [place], [place] [phone] Brinda Hale, OD [address] [place] [address] documented as of this encounter Visit Diagnoses Not on filedocumented in this encounter Care Teams Molecular Spectroscopist Relationship Specialty Start Date End Date Tony Azevedo FNP PCP - General Family Medicine 10/25/22 01/16/23 Shaniqua Gutierrez FNP [address] [place] [address] PCP - General Family Medicine 01/17/23 07/20/24 Hermilo Batista MD [address] [place] [address] PCP - General Internal Medicine 07/21/24 12/10/24 Arturo Cevallos CNP [address] [place] [address] PCP - General Family Medicine 12/11/24 12/21/24 Juliette Madden MD [address] [place] [phone] PCP - General Family Medicine 12/22/24 documented as of this encounter
== END 2025-09-29 15:40 | disposition home or self-care (01) ==
LOC: HO.US 15:39
DX: E04.2 Nontoxic multinodular goiter (principal)
CPT/HCPCS: 76536

== ENCOUNTER → 2025-09-29 15:41 | Outpatient (BNV) | payer MEDICAID, SELFPAY | PROVIDERS: Visit Provider Radiology Body Imaging | DX: E04.1 Nontoxic single thyroid nodule (principal) | CPT/HCPCS: 76536 ==

== ENCOUNTER 2025-10-09 09:54 | Outpatient (REF) | payer MEDICAID, SELFPAY ==
--- NOTE | ~2025-10-09 | CT_ITS ---
CLINICAL HISTORY: head injury, patient reports recent memory loss CT head without contrast Comparison: CT/SR - CT HEAD/BRAIN WO CON - 01/29/22 09:43 EDT Findings: No acute hemorrhage, acute major vascular distribution infarct, intracranial mass, midline shift or hydrocephalus. Left anterior frontal lobe focal cortical volume loss, unchanged. Visualized paranasal sinuses and mastoid air cells normal. Orbits unremarkable. The cranium appears intact. Superficial soft tissue is unremarkable. Impression: 1. No acute intracranial finding. 2. Stable focal cortical volume loss of the left anterior frontal lobe. This document has been electronically signed by: Roxane Boykin MD on 10/11/2025 16:24:23
--- OUTSIDE RECORDS SUMMARY | 2025-10-09 09:56 | XMS_ITS | Encounter Summary ---
Author Organization [facility] [facility] Address [address] [place] [address] 7 [place] [address] Care Team Providers Care Beeswax Bleacher Name Role Phone Tony Azevedo Primary Care Provider Shaniqua Lee Primary Care Provider [phone] Hermilo Batista MD Primary Care Provider [phone] Arturo Cevallos CNP Primary Care Provider [phone] Juliette Madden MD Primary Care Provider [phone] Encounter Details Date Type Department Care Team (Late st Contact Info) Description 12/13/2022 Telephone [facility] [address] [place], [place] [phone] Tony Azevedo FNP Social History Tobacco Use [...] Description 02/02/2026 3:30 PM EDT Office Visit [facility] OPT[facility] [address] [place], [place] [phone] Brinda Hale, OD 230 [place] [address] documented as of this encounter Visit Diagnoses Not on filedocumented in this encounter Care Teams Beeswax Bleacher Relationship Specialty Start Date End Date Tony Azevedo FNP PCP - General Family Medicine 10/25/22 01/16/23 Shaniqua Gutierrez FNP [address] [place] [address] PCP - General Family Medicine 01/17/23 07/20/24 Hermilo Batista MD [address] [place] [address] PCP - General Internal Medicine 07/21/24 12/10/24 Arturo Cevallos CNP [address] [place] [address] PCP - General Family Medicine 12/11/24 12/21/24 Juliette Madden MD [address] [place] [address] PCP - General Family Medicine 12/22/24 documented as of this encounter
--- OUTSIDE RECORDS SUMMARY | 2025-10-09 09:56 | XMS_ITS | Encounter Summary ---
Author Organization [facility] Address [address] [place] [address] 7 [place] [address] Care Team Providers Care Furniture Technician Name Role Phone Tony Azevedo [facility] Primary Care Provider Shaniqua Lee RAIL OPERATOR Primary Care Provider [phone] Hermilo Batista MD Primary Care Provider [phone] Arturo Cevallos [facility] Primary Care Provider [phone] Juliette Madden MD Primary Care Provider [phone] Encounter Details Date Type Department Care Team (Late st Contact Info) Description 12/14/2022 Orders Only [facility] MEDICINE [address] [place], [place] [phone] Josefina Moreland RN Social History Tobacco Use [...] Description 02/02/2026 3:30 PM EDT Office Visit [facility] OPTOMETRY [address] [place], [place] [phone] Brinda Hale, OD 230 [place], [place] [phone] documented as of this encounter Visit Diagnoses Not on filedocumented in this encounter Care Teams Furniture Technician Relationship Specialty Start Date End Date Tony Azevedo FNP PCP - General Family Medicine 10/25/22 01/16/23 Shaniqua Gutierrez FNP 230 [place] [address] PCP - General Family Medicine 01/17/23 07/20/24 Hermilo Batista MD 230 [place] [address] PCP - General Internal Medicine 07/21/24 12/10/24 Arturo Cevallos CNP 230 [place] [address] PCP - General Family Medicine 12/11/24 12/21/24 Juliette Madden MD [address] [place] [address] PCP - General Family Medicine 12/22/24 documented as of this encounter
--- OUTSIDE RECORDS SUMMARY | 2025-10-09 09:57 | XMS_ITS | Encounter Summary ---
Author Organization [employer] Address [address] [facility] [address] [place] [address] Care Team Providers Care Pipe Layer Name Role Phone Shaniqua Gutierrez Primary Care Provider [phone] Hermilo Batista MD Primary Care Provider [phone] Arturo Cevallos CNP Primary Care Provider [phone] Juliette Madden MD Primary Care Provider [phone] Reason for Visit * Reason Comments Med Refill Encounter Details Date Type Department Care Team (Late st Contact Info) Description 05/25/2024 Refill [facility] [address] [place], [place] [phone] Shaniqua Gutierrez FNP [address] [place], [place] [phone] Pruritic rash Social History Tobacco Use Types [...] 3:30 PM EDT Office Visit [facility] [address] [place], [place] [phone] Geoffrey, Brinda, OD 230 [place] [address] documented as of this encounter Visit Diagnoses Diagnosis Pruritic rash documented in this encounter Additional Health Concerns Assessment Noted Time PHQ-9 Depression Total Score: 2 01/26/20 23 10:19 AM EST documented as of this encounter Care Teams Pipe Layer Relationship Specialty Start Date End Date Shaniqua Gutierrez FNP [address] [place] [address] PCP - General Family Medicine 01/17/23 07/20/24 Hermilo Batista MD [address] [place] [address] PCP - General Internal Medicine 07/21/24 12/10/24 Arturo Cevallos CNP [address] [place] [address] PCP - General Family Medicine 12/11/24 12/21/24 Juliette Madden MD [address] [place] [address] PCP - General Family Medicine 12/22/24 documented as of this encounter
--- OUTSIDE RECORDS SUMMARY | 2025-10-09 09:57 | XMS_ITS | Clinical Summary ---
Author Organization [employer] Address [address] [facility] 7t [place] [address] Care Team Providers Care Salesperson Surgical Appliances Name Role Phone Juliette Madden MD Primary Care Provider [phone] Allergies No known active allergies Medications omeprazole [...] 08/06/2025 Active ergocalciferol (Vitamin D2) 1.25 MG (54509 UT) capsule Take 1 capsule by mouth [...] Encounters Date Type Department Care Team Description 10/04/2025 Results Follow-Up [facility] [address] [place] [address] Arturo Cevallos CNP US Head Neck Soft Tissue 08/17/2025 9:45 AM EDT Office Visit [facility] [address] [place] [address] Arturo Cevallos CNP Encounter for physical examination (Primary Dx); Encounter for screening mammogram for breast cancer; Encounter for screening for malignant neoplasm of colon; Multiple thyroid nodules; Tobacco use; Injury of head, sequela 08/17/2025 Travel 08/16/2025 Telephone [facility] [address] [place] [address] Juliette Madden MD chart prep 08/10/2025 Patient Outreach [facility] MEDICINE [address] [place] [address] Juliette Madden MD Pre-visit Planning ((Unable to [...] Description 02/02/2026 3:30 PM EDT Office Visit [facility] OPTOMETRY [address] [place] [address] Geoffrey, Brinda, OD [address] [place] [address] Health Maintenance Due Date Last Done Comments CT Colonography 1979 Colonoscopy 1979 Dental Prophylaxis 1979 FIT DNA/Cologuard 1979 FIT 1979 Sigmoidoscopy 1979 Dental Oral Exam 06/04/2013 12/04/2012 Dental X-Ray: Full Mouth 12/05/2015 12/04/2012 Mammogram 2019 Colorectal Cancer Screening 12/09/2020 FOBT 12/09/2020 12/09/2019 Dental X-Ray: Bitewings 06/28/2024 06/27/20 23, 12/04/2012 Cervical Cancer Screening 03/23/2026 HPV/Cotest 03/23/2026 03/23/2021 Pap Smear 03/23/2026 03/23/2021 Influenza Vaccine (#1) 2026 2, 10/02/2007 Postponed from 07/19/2025 (Patient Refused) Alcohol/Substance Use Screening 08/17/2026 08/17/2025 COVID-19 Vaccine ( - 2024- 6 season) 2026 08/02/2021, 07/12/2021 Postponed from [...] PM EST Narrative 09/29/2025 5:56 PM EST [place] [address] Ultrasound Report Signed Patient: Martina Araiza MR#: [id number] : 1980 Acct:[id number] Age/Sex: 45 / F ADM Date: 09/29/25 Loc: HO.US Attending Dr: Arturo Cevallos BRIDGE GANG WORKER Ordering Physician: Arturo Cevallos NP Date of Service: 09/29/25 Procedure(s): US soft tiss head and/or neck Accession Number(s): [id number] cc: Arturo Cevallos NP Reason for Exam: [...] than or equal to 1 cm: 0. Hotel Baggage Handler nodules are described as follows: 1. Location: [...] by: Brenda Don MD 09/29/2025 05:52 PM [facility] Dictated By: Brenda Don MD Signed By: <Electronically signed by Brenda Don MD in OV> 09/29/25 1752 DD/ 1551 TD/TT: 09/29/25 1603 Reading Recovery Teacher: Procedure Note Donotuseinterpreter, Image - 09/29/[address] [address] Ultrasound Report Signed Patient: Martina AraizaMR#: [id number] : 1980Acct:[id number] Age/Sex: 45 / FADM Date: 09/29/25 Loc: HO.US Attending Dr: Arturo Cevallos NP Ordering Physician: Arturo Cevallos NP Date of Service: 09/29/25 Procedure(s): US soft tiss head and/or neck Accession Number(s): [id number] cc: Arturo Cevallos NP Reason for Exam: [...] than or equal to 1 cm: 0. Hotel Baggage Handler nodules are described as follows: 1. Location: [...] by: Brenda Don MD 09/29/2025 05:52 PM [facility] Dictated By: Brenda Don MD Signed By: <Electronically signed by Brenda Don MD in OV> 09/29/25 1752 DD/ 1551 TD/TT: 09/29/25 1603 Reading Recovery Teacher: [facility] US PROCEDURES Final R esult * Vitamin D, 25-Hydroxy, Total, Immunoassay (08/17/2025 10:22 AM EDT) Vitamin D 25-OH Total 38.7 >30 ng/mL [facility] Comment: Health Based Reference Values*< 20 ng/mL Rrnnhaaax59-58 ng/mL Insufficient> 30 ng/mL Sufficient*Krystal FELIZ. N [...] 10:22 AM EDT 08/17/2025 2:14 PM EDT [facility] LAB BLOOD ORDERABLES Mery l Result Performing Organization Address [facility] Co de Phone Number [facility] [address] [place] [phone] * TSH W/Reflex to FT4 (08/17/2025 10:22 AM EDT) Pathologist [facility] TSH reflex Free T4 0.40 0.32 - 4.0 uIU/mL [facility] Blood Venous blood specimen / Unknown 08/17/2025 10:22 AM EDT 08/17/2025 2:14 PM EDT [facility] LAB BLOOD ORDERABLES Mery l Result Performing Organization Address [facility] Co de Phone Number [facility] [address] [place] [phone] * (ABNORMAL) CBC auto differential (08/17/2025 10:22 AM EDT) White Blood Count 9.1 4.8 - 10.8 X10*3/uL [facility] Red Blood Count 4.30 4.20 - 5.50 X10*6/uL [facility] Hemoglobin 12.7 12.0 - 16.0 g/dl [facility] Hematocrit 40.0 37.0 - 47.0 % [facility] Mean Corpuscular Volume 93.0 80.0 - 98.0 fL [facility] Mean Corpuscular Hemoglobin 29.5 27.0 - 33.0 pg [facility] Mean Corpuscular HGB Conc 31.8 31.0 - 35.0 g/dl [facility] Red Cell Distribution Width 12.6 11.0 - 16.0 % [facility] Platelet Count 361 160 - 400 X10*3/uL [facility] Mean Platelet Volume 10.2 9.4 - 12.3 fL [facility] Neutrophils Percent Auto 64.5 45 - 73 % [facility] Imm Gran Pct Auto 0.4 0.0 - 0.4 % [facility] Lymphocytes Percent Auto 25.4 20 - 40 % [facility] Monocytes Percent Auto 7.5 2 - 11 % [facility] Eosinophils Percent Auto 1.8 0 - 4 % [facility] Basophils Percent Auto 0.4 0 - 2 % [facility] NRBC Pct Auto 0.0 0.0 - 0.2 /100WBC [facility] Neutrophils Absolute Auto 5.9 2.0 - 8.3 x10*3/uL [facility] Imm Gran Abs Auto 0.04(H) 0.00 - 0.03 X10*3/uL [facility] Lymphocytes Absolute Auto 2.3 1.2 - 4.9 X10*3/uL [facility] Monocytes Absolute Auto 0.7 0.1 - 1.2 X10*3/uL [facility] Eosinophils Absolute Auto 0.2 0.0 - 0.4 X10*3/uL [facility] Basophils Absolute Auto 0.0 0.0 - 0.2 X10*3/uL [facility] NRBC Abs Auto 0.000 0.0 - 0.012 X10*3/uL [facility] Blood Venous blood specimen / Unknown 08/17/2025 10:22 AM EDT 08/17/2025 2:09 PM EDT Arturo Cevallos HOSPICE MANAGER LAB BLOOD ORDERABLES Mery l Result Performing Organization Address [facility] Co de Phone Number [facility] [address] [place] [phone] * Iron And Total Iron Binding Capacity (08/17/2025 10:22 AM EDT) Pathologist [facility] Iron 135 30 - 160 mcg/dL [facility] Total Iron Binding Capacity 301 228 - 428 mcg/dL [facility] Percent Iron Saturation 45 15 - 50 % [facility] Unsaturated Iron Binding 166 ug/dL [facility] Blood Venous blood specimen / Unknown 08/17/2025 10:22 AM EDT 08/17/2025 2:14 PM EDT [facility] LAB BLOOD ORDERABLES Mery l Result Performing Organization Address [facility] de Phone Number [facility] [address] [place] [phone] * Ferritin (08/17/2025 10:22 AM EDT) [facility] Ferritin 50 10 - 250 ng/mL [facility] Blood Venous blood specimen / Unknown 08/17/2025 10:22 AM EDT 08/17/2025 2:14 PM EDT [facility] LAB BLOOD ORDERABLES Mery l Result Performing Organization Address [facility] de Phone Number [facility] [address] [place] [phone] * Hepatitis C Antibody with Reflex to HCV, RNA, Quantitative, Real-Time PCR (10/22/2022 10:27 AM EST) [facility] Hepatitis C Antibody NON-REACT JAMI NON-REACT JAMI [facility] [place] [facility] Index 0.16 <1.00 [facility] Comment: HCV antibody was non-reactive. There is no laboratory evidence of HCV infection. In most cases, no further action is required. However, if recent HCV exposure is suspected, a test for HCV RNA (test code 72381) is suggested. For additional information please refer to http://GrowBLOX.MiCarga/faq/LYC17v9 (This link is being provided for informational/ educational purposes only.) 10/22/2022 10:2 7 AM EST 10/22/2022 10:27 AM EST Narrative [facility] - 10/25/2022 4:23 PM EST FASTING:YES FASTING: YES us Hermilo Batista MD LAB BLOOD ORDERABLES Final Resul t Drik [address] [place] [address], [place] [address] [facility] [place] [facility] [address], [facility] [place] [address] * HIV-1/2 Antigen and Antibodies, Fourth Generation, with Reflexes (10/22/2022 10:27 AM EST) Pathologist [facility] HIV Antigen/Antibody, 4th Generation NON-REAC TIVE NON-REAC TIVE [facility] Comment: HIV-1 antigen and HIV-1/HIV-2 antibodies were [...] purpose. For additional information please refer to http://GrowBLOX.[place] CrossFit.Wingz/faq/TGM418 (This link is being provided for informational/ educational purposes only.) The performance of this assay has not been clinically validated in patients less than 2 years old. 10/22/2022 10:2 7 AM EST 10/22/2022 10:27 AM EST Narrative [facility] - 10/25/2022 4:23 PM EST FASTING:YES FASTING: YES us Hermilo Batista MD LAB BLOOD ORDERABLES Final Resul t Performing Organization Address [facility] Co de Phone Number [facility] [address], [place] [address] [facility] [place] [facility] [facility] [address], [facility] [place] [place] [address] * (ABNORMAL) Lipid Panel, Standard (10/22/2022 10:27 AM EST) [facility] Signature Cholesterol, Total 187 <200 mg/dL [facility] [place] [facility] HDL Cholesterol 46(L) > OR = 50 mg/dL [facility] [place] [facility] Triglycerides 64 <150 mg/dL [facility] [place] [facility] LDL Cholesterol 125(H) mg/dL (calc) [facility] [place] [facility] Comment: Reference range: <100 Desirable range <100 mg/dL for primary prevention; <70 mg/dL for patients with CHD or diabetic patients with > or = 2 CHD risk factors. LDL-C is now calculated using the Josh-Leah calculation, which is a validated novel method providing better accuracy than the Friedewald equation in the estimation of LDL-C. Josh SS et al. ML. 2013;310(19): 9326-3897 (http://education.myWebRoom/faq/BMO056) Chol/HDLC Ratio 4.1 <5.0 (calc) [facility] [place] [facility] Non-HDL Cholesterol 141(H) <130 mg/dL (calc) [facility] [place] [facility] Comment: For patients with diabetes plus 1 major ASCVD risk factor, treating to a non-HDL-C goal of <100 mg/dL (LDL-C of <70 mg/dL) is considered a therapeutic option. 10/22/2022 10:2 7 AM EST 10/22/2022 10:27 AM EST Narrative [facility] - 10/25/2022 4:23 PM EST FASTING:YES FASTING: YES us Hermilo Batista MD LAB BLOOD ORDERABLES Final Resul t Performing Organization Address [facility]/ZIP Co de Phone Number [facility] [address], [facility] [place] [place] [address] [facility] 200 [facility], [facility] Fl, [place] [address] * Hm Pap Smear (03/23/2021) Pap Negative [...] Final Result [facility] [address] from Last 3 Months or Most Recently Relevant to Health Maintenance Insurance [facility] C3 * Guarantor: Martina Araiza Account Type Relation to Patient Date of Phone Billing Address Dental Self [address] [place] [address] [facility]AL-[facility] MEDICAID STAND ADULT Care Teams Salesperson Surgical Appliances Relationship Specialty Start Date End Date Juliette Madden MD [address] [place] [phone] PCP - General Family Medicine 12/22/24
--- OUTSIDE RECORDS SUMMARY | 2025-10-09 09:57 | XMS_ITS | Encounter Summary ---
Author Organization [employer] Address [address] [place] [address] 7t [place] [address] Care Team Providers Care Factory Maintenance Technician Name Role Phone Shaniqua Gutierrez Primary Care Provider [phone] Hermilo Batista MD Primary Care Provider [phone] Arturo Cevallos CNP Primary Care Provider [phone] Juliette Madden MD Primary Care Provider Reason for Visit * Reason Onset Date Comments triage 03/05/2023 Encounter Details Date Type Department Care Team (Late st Contact Info) Description 03/05/2023 Telephone [facility] MEDICINE [address] [place], [place] [phone] Shaniqua Gutierrez FNP [address] [place] [address] triage Social History Tobacco Use Types Packs/Day [...] in the morning. Per pt [facility] but that medication not refilled.Pt states irritable without medication. Pt advised do see both electronic refill request and message sent as well. Will send to team to review with a covering since PCP not in office today to see if Rx can be sent in to pt tonight. Reviewed [facility] operating hours should sx of anxiety worsen. Pt agrees. Also sent Kudo chat message to team nurses to notify [...] Description 02/02/2026 3:30 PM EDT Office Visit [facility] OPTOM[facility]RY [address] [place] [address] Brinda Hale, OD [address] [place] [address] documented as of this encounter Visit Diagnoses Not on filedocumented in this encounter Additional Health Concerns Assessment Noted Time PHQ-9 Depression Total Score: 2 01/26/20 23 10:19 AM EST documented as of this encounter Care Teams Factory Maintenance Technician Relationship Specialty Start Date End Date Shaniqua uGtierrez FNP [address] [place] [address] PCP - General Family Medicine 01/17/23 07/20/24 Hermilo Batista MD [address] [place] [address] [phone] PCP - General Internal Medicine 07/21/24 12/10/24 Arturo Cevallos CNP [address] [place] [address] [phone] PCP - General Family Medicine 12/11/24 12/21/24 Juliette Madden MD [address] [place] [address] [phone] PCP - General Family Medicine 12/22/24 documented as of this encounter
--- OUTSIDE RECORDS SUMMARY | 2025-10-09 09:57 | XMS_ITS | Encounter Summary ---
Author Organization [employer] [facility] Address [address] [place] [address] [address] [place] [address] Care Team Providers Care Setter Induction Heating Equipment Name Role Phone Tony Azevedo Primary Care Provider Shaniqua Lee Primary Care Provider [phone] Hermilo Batista MD Primary Care Provider [phone] Arturo Cevallos CNP Primary Care Provider [phone] Juliette Madden MD Primary Care Provider [phone] Encounter Details Date Type Department Care Team (Late st Contact Info) Description 10/23/2022 Orders Only [facility] MEDICINE [address] [place], [place] [phone] Tony Azevedo FNP Social History Tobacco Use [...] Description 02/02/2026 3:30 PM EDT Office Visit [facility] OPTOMETRY [address] [place] [address] Brinda Hale, OD [address] [place] [address] documented as of this encounter Visit Diagnoses Not on filedocumented in this encounter Care Teams Setter Induction Heating Equipment Relationship Specialty Start Date End Date Tony Azevedo FNP PCP - General Family Medicine 10/25/22 01/16/23 Shaniqua Gutierrez FNP [address] [place] [address] PCP - General Family Medicine 01/17/23 07/20/24 Hermilo Batista MD 230 [place] [address] PCP - General Internal Medicine 07/21/24 12/10/24 Arturo Cevallos CNP [address] [place] [address] PCP - General Family Medicine 12/11/24 12/21/24 Juliette Madden MD [address] [place] [address] PCP - General Family Medicine 12/22/24 documented as of this encounter
--- OUTSIDE RECORDS SUMMARY | 2025-10-09 09:57 | XMS_ITS | Encounter Summary ---
Author Organization [employer] Address [address] [place] [address] [address] [place] [address] Care Team Providers Care Unit Aide Name Role Phone Shaniqua Gutierrez Primary Care Provider [phone] Hermilo Batista MD Primary Care Provider [phone] Arturo Cevallos [employer] INSPECTOR Primary Care Provider [phone] Juliette Madden MD Primary Care Provider [phone] Reason for Visit * Reason Onset Date Comments Nurse Triage 12/10/2023 Encounter Details Date Type Department Care Team (Late st Contact Info) Description 12/10/2023 Telephone [facility] [address], [place] [phone] Shaniqua Gutierrez FNP [address], [place] [phone] Nurse Triage Social History Tobacco Use Types [...] . Pt is advised to come to [facility] today or tomorrow. Hours given open till [...] accepted this outcome Please contact pt @ [phone] or [phone] documented in this encounter Plan of Treatment Upcoming Encounters Date Type Department Care Team (Late st Contact Info) Description 02/02/2026 3:30 PM EDT Office Visit [facility] [address] [place] [address] Brinda Hale, OD [address] [place] [address] documented as of this encounter Visit Diagnoses Not on filedocumented in this encounter Additional Health Concerns Assessment Noted Time PHQ-9 Depression Total Score: 2 01/26/20 23 10:19 AM EST documented as of this encounter Care Teams Unit Aide Relationship Specialty Start Date End Date Shaniqua Gutierrez FNP [address] [place] [address] PCP - General Family Medicine 01/17/23 07/20/24 Hermilo Batista MD [address] [place] [address] PCP - General Internal Medicine 07/21/24 12/10/24 Arturo Cevallos CNP [address] [place] [address] PCP - General Family Medicine 12/11/24 12/21/24 Juliette Madden MD [address] [place] [address] PCP - General Family Medicine 12/22/24 documented as of this encounter
--- OUTSIDE RECORDS SUMMARY | 2025-10-09 09:57 | XMS_ITS | Encounter Summary ---
Author Organization [employer] Address [address] [place] [address] [address] [place] [address] Care Team Providers Care Teaching Assistant Name Role Phone Juliette Madden MD Primary Care Provider [phone] Reason for Visit * Reason Onset Date Comments Results 10/04/2025 Encounter Details Date Type Department Care Team ([facility] st Contact Info) Description 10/04/2025 Results Follow-Up [facility] [address], [place] [phone] Arturo Cevallos, ARMEN [address] [place] [address] US Head Neck Soft Tissue Social History Tobacco Use Types Packs/Day Years [...] your housing situation today? I have chema sing 08/17/[address] you li [...] encounter Miscellaneous Notes * Telephone Encounter - Samantha Terry RN - 10/05/2025 9:21 AM EST TC to pt and reviewed US results. Advised for additional concerns to follow up with PCP. Advised ofrecall date. Pt verbalized understanding and agreement with plan. * Telephone Encounter - Samantha Terry RN - 10/05/2025 9:21 AM EST ----- Message from Arturo Cevallos sent at 10/04/2025 10:47 AM EST ----- Please let patient know US of thyroid showed a right thyroid nodule that she is aware of, overall imaging was benign and does not require follow up with additional imaging or biopsy at this time. Thank you ----- Message ----- From: Sheng Tanner Results In Sent: 09/29/2025 5:56 PM EST To: Arturo Cevallos CNP * Result Encounter Note - Arturo Cevallos CNP - 10/04/2025 10:47 AM EST Please let patient know US of thyroid showed a right thyroid nodule that she is aware of, overall imaging was benign and does not require follow up with additional imaging or biopsy at this time. Thank you documented in this encounter Plan of Treatment Upcoming Encounters Date Type Department Care Team (Late st Contact Info) Description 02/02/2026 3:30 PM EDT Office Visit [facility] [address] [place] [address] GeoffreyBrinda bueno, OD [address] [place] [address] documented as of this encounter Visit Diagnoses Not on filedocumented in this encounter Additional Health Concerns Assessment Noted Time PHQ-9 Depression Total Score: 2 08/17/20 9:54 AM EDT documented as of this encounter Care Teams Teaching Assistant Relationship Specialty Start Date End Date Juliette Madden MD [address] [place] [address] PCP - General Family Medicine 12/22/24 documented as of this encounter
== END 2025-10-09 09:55 | disposition home or self-care (01) ==
LOC: HO.CT 09:54
DX: R41.3 Other amnesia (principal); S09.90XS Unspecified injury of head, sequela
CPT/HCPCS: 70450

== ENCOUNTER → 2025-10-09 09:57 | Outpatient (BNV) | payer MEDICAID, SELFPAY | PROVIDERS: Visit Provider Radiology Diagnostic Radiology | DX: S09.90XA Unspecified injury of head, initial encounter (principal); R41.3 Other amnesia | CPT/HCPCS: 70450 ==